=== PATIENT | male | born 1950 | race Two or more races ===

== ENCOUNTER 2016-11-10 12:30 | Inpatient (IN) | payer BC ==
[~2016-11-10] VITALS: Ht 182.9 cm; Wt 88.0 kg
[2016-11-10 12:34] VITALS: BP 165/72; PULSE 58; RESP 15; TEMP 98.2; O2SAT 98
--- NOTE | 2016-11-10 13:30 | PD ---
HPI Chief Complaint: Abnormal Results Time Seen by Provider: 13:17 Travel History International Travel<30 days: Yes Contact w/Intl Traveler<30days: Yes Name of Country Traveled to: [place] Traveled to known affect area: Yes History of Present Illness HPI 66yo M with PMH of IgA nephropathy currently waiting on transplant list presents to the ED with c/o worsening sob, worsening bilateral lower extremity edema for 2-3 weeks. Pt just came from [place] last night and had lab works in [place] recently that showed elevated BUN and creatinine. Pt had right AV fistula created last week. Denies any fever, cough, chest pain, vomiting, abdominal pain, focal weakness or numbness. Pt's son is one of our hospitalist Dr. Wooten and he spoke with Dr. Thakkar who advised him to bring him to [place] ED. PFSH Past Medical History Diabetes: Yes (no medications) Patient Takes Glucophage: No Dialysis: Yes Hypertension: Yes Medical other: Yes (IGA NEPHROPATHY) Past Surgical History Other Surgery: Yes (UMBILICAL HERNIA REPAIR) Social History Alcohol Use: No Tobacco Use: No Substance Use: No Allergies-Medications (Allergen,Severity, Reaction): Coded Allergies: No Known Allergies (Unverified , 11/10/16) Reported Meds & Prescriptions Reported Meds & Active Scripts Active Review of Systems Except as stated in HPI: all other systems reviewed are Neg Physical Exam Narrative GENERAL: 66yo M not in distress. SKIN: Warm and dry. HEAD: Atraumatic. Normocephalic. EYES: Pupils equal and round. No scleral icterus. No injection or drainage. ENT: No nasal bleeding or discharge. Mucous membranes pink and moist. NECK: Trachea midline. No JVD. CARDIOVASCULAR: Regular rate and rhythm. No murmur appreciated. RESPIRATORY: No accessory muscle use. Clear to auscultation. Breath sounds equal bilaterally. GASTROINTESTINAL: Abdomen soft, non-tender, nondistended. No rebound tenderness or guarding. MUSCULOSKELETAL: No obvious deformities. No clubbing. No cyanosis. +Bilateral lower extremity edema. NEUROLOGICAL: Awake and alert. No obvious cranial nerve deficits. Motor grossly within normal limits. Normal speech. PSYCHIATRIC: Appropriate mood and affect; insight and judgment normal. Data Data Last Documented VS Vital Signs Date Time Temp Pulse Resp B/P Pulse Ox O2 Delivery O2 Flow Rate FiO2 11/10/16 13:21 63 18 99 Room Air 11/10/16 12:34 98.2 165/72 Orders Complete Blood Count With Diff (11/10/16 13:26) Comprehensive Metabolic Panel (11/10/16 13:26) Electrocardiogram (11/10/16 ) Chest, Single Ap (11/10/16 ) B-Type Natriuretic Peptide (11/10/16 13:26) Troponin I (11/10/16 13:26) Prothrombin Time / Inr (Pt) (11/10/16 14:46) ^ Blood Flow Rate (11/10/16 14:48) ^ Dialysate Flow Rate (11/10/16 14:48) ^ Dialyzer (11/10/16 14:48) ^ Concentrate (11/10/16 14:48) ^ Acid Concentrate (11/10/16 14:48) ^ Length Of Dialysis (11/10/16 14:48) ^ Frequency Of Dialysis (11/10/16 14:48) ^ Dialysis Obtain (11/10/16 14:48) Hepatitis Profile (11/10/16 14:48) ^ Needle Size (11/10/16 14:48) ^ Dialysis Schedule (11/10/16 14:48) Resp Oxygen Wade C Titrat 1-4 L (11/10/16 ) ^ Dialysis Weight (11/10/16 14:48) ^ Obtain As Needed (11/10/16 14:48) Sodium Chlor 0.9% 1000 Ml Inj (Ns 1000 M (11/10/16 14:48) Heparin Inj (Heparin Inj) (11/10/16 15:00) Sodium Chlor 0.9% 1000 Ml Inj (Ns 1000 M (11/10/16 14:48) Sodium Chlor 0.9% 1000 Ml Inj (Ns 1000 M (11/10/16 14:48) Mannitol Inj (Mannitol Inj) (11/10/16 15:00) Albumin 25% Inj (Albumin 25% Inj) (11/10/16 15:00) Sodium Chloride 0.9% Flush (Ns Flush) (11/10/16 15:00) Heparin Inj (Heparin Inj) (11/10/16 15:00) Gentamicin (Dialysis) Inj (Gentamicin (D (11/10/16 15:00) Ondansetron Inj (Zofran Inj) (11/10/16 15:00) Acetaminophen (Tylenol) (11/10/16 15:00) Diphenhydramine (Benadryl) (11/10/16 15:00) Nitroglycerin Sl (Nitrostat Sl) (11/10/16 15:00) Clonidine (Catapres) (11/10/16 15:00) Epoetin Edinson Inj (Epogen Inj) (11/10/16 15:00) Gelatin 12 Mm/7 Mm Top (Gelfoam 12 Mm/7 (11/10/16 15:00) Admit To Inpatient (11/10/16 ) Inpatient Certification (11/10/16 ) Admit Order (Ed Use Only) (11/10/16 14:54) Activity Bed Rest (11/10/16 14:54) Vital Signs (Adult) THEA.Q4H (11/10/16 14:54) Labs Laboratory Tests Test 11/10/16 13:20 White Blood Count 8.2 TH/MM3 Red Blood Count 3.63 MIL/MM3 Hemoglobin 11.6 GM/DL Hematocrit 32.6 % Mean Corpuscular Volume 89.8 FL Mean Corpuscular Hemoglobin 32.0 PG Mean Corpuscular Hemoglobin 35.7 % Concent Red Cell Distribution Width 13.4 % Platelet Count 301 TH/MM3 Mean Platelet Volume 6.2 FL Neutrophils (%) (Auto) 70.5 % Lymphocytes (%) (Auto) 17.0 % Monocytes (%) (Auto) 6.8 % Eosinophils (%) (Auto) 5.0 % Basophils (%) (Auto) 0.7 % Neutrophils # (Auto) 5.8 TH/MM3 Lymphocytes # (Auto) 1.4 TH/MM3 Monocytes # (Auto) 0.6 TH/MM3 Eosinophils # (Auto) 0.4 TH/MM3 Basophils # (Auto) 0.1 TH/MM3 CBC Comment DIFF FINAL Differential Comment Sodium Level 141 MEQ/L Potassium Level 5.0 MEQ/L Chloride Level 106 MEQ/L Carbon Dioxide Level 23.0 MEQ/L Anion Gap 12 MEQ/L Blood Urea Nitrogen 74 MG/DL Creatinine 11.28 MG/DL Estimat Glomerular Filtration 5 ML/MIN Rate Random Glucose 88 MG/DL Calcium Level 8.7 MG/DL Total Bilirubin 0.4 MG/DL Aspartate Amino Transf 8 U/L (AST/SGOT) Alanine Aminotransferase 19 U/L (ALT/SGPT) Alkaline Phosphatase 69 U/L Troponin I LESS THAN 0.02 NG/ML B-Type Natriuretic Peptide 1068 PG/ML Total Protein 7.2 GM/DL Albumin 3.3 GM/DL MDM Medical Decision Making Medical Screen Exam Complete: Yes Emergency Medical Condition: Yes Interpretation(s) EKG: Sinus bradycardia at 54bpm. LAD. TWI V4-V6. No prior to compare. Differential Diagnosis Acute on chronic kidney failure vs. ACS. vs. PNA Narrative Course 66yo M with IgA nephropathy with worsening renal function. Labs reviewed, H/H low at 11.6/32.6. BUN/creatinine elevated at 74/11.28. This is an acute change from a few days ago when creatinine was 9. BNP 1068. Troponin is negative. K is 5.0. Pt is currently not in acute distress. CXR negative. Discussed with product/device technologist Dr. Thakkar who recommended admission and hemodialysis. Pt has an AV fistula on right arm that has not mature yet. Placed interventional consult for Vas-cath placement for hemodialysis. Discussed with Dr. Wolfe who accepted patient to her service. VS stable. Diagnosis Primary Impression: Acute on chronic kidney failure Admitting Information Admitting Physician Requests: Admit Viridiana Hines DO Nov 10, 2016 13:30
[2016-11-10 13:41] LABS: AUTOMATED NEUTROPHIL # 5.8 TH/MM3 (1.8-7.7); BASOPHIL # 0.1 TH/MM3 (0-0.2); BASOPHIL % 0.7 % (0.0-2.0); EOSINOPHIL # 0.4 TH/MM3 (0-0.4); HEMATOCRIT 32.6 % (39.0-51.0); HEMO FLAGS DIFF FINAL; LYMPHOCYTE # 1.4 TH/MM3 (1.0-4.8); MEAN CELL VOLUME 89.8 FL (80.0-100.0); MEAN CORPUSCULAR HGB CONC 35.7 % (32.0-36.0); MONO % 6.8 % (0.0-8.0); NEUT % 70.5 % (16.0-70.0); PLATELET COUNT 301 TH/MM3 (150-450); RED BLOOD COUNT 3.63 MIL/MM3 (4.50-5.90); RED CELL DISTRIBUTION WIDTH 13.4 % (11.6-17.2); WHITE BLOOD COUNT 8.2 TH/MM3 (4.0-11.0)
[2016-11-10 14:03] LABS: ALT (GPT) 19 U/L (12-78); ANION GAP 12 MEQ/L (5-15); AST (GOT) 8 U/L (15-37); BLOOD UREA NITROGEN 74 MG/DL (7-18); CHLORIDE 106 MEQ/L (98-107); GLOMERULAR FILTRATION RATE 5 ML/MIN (>89); SODIUM (NA) 141 MEQ/L (136-145)
[2016-11-10 14:07] LABS: ALKALINE PHOSPHATASE 69 U/L (45-117); TOTAL BILIRUBIN ADULT 0.4 MG/DL (0.2-1.0)
--- NOTE | 2016-11-10 14:12 | RADRPT ---
EXAM DATE/TIME: 11/10/2016 13:39 [facility] COMPARISON: No previous studies available for comparison. INDICATIONS : Shortness of breath. MEDICAL HISTORY : Hypertension. SURGICAL HISTORY : None. ENCOUNTER: Initial ACUITY: 3 days PAIN SCORE: 0/10 LOCATION: Bilateral chest FINDINGS: A single view of the chest demonstrates the lungs to be symmetrically aerated without evidence of mas s, infiltrate or effusion. The cardiomediastinal contours are unremarkable. Osseous structures are intact. CONCLUSION: No acute disease. Lenny Faye MD on November 10, 2016 at 14:11 Board Certified Radiologist. This report was verified electronically.
[2016-11-10] MEDS ORDERED: SODIUM CHLOR 0.9% 1000 ML INJ 1,000 ML IV PRN ×2 (14:48)
[2016-11-10] MEDS ORDERED: ACETAMINOPHEN 325 MG TAB PO PRN (15:00)
[2016-11-10] MEDS ORDERED: SODIUM CHLORIDE 0.9% FLUSH 5 ML FLUSH IVF PRN ×2 (15:00→18:00)
[2016-11-10] MEDS ORDERED: HEPARIN SODIUM - IV 10,000 UNITS/10 ML VIAL IVF PRN ×2 (15:00→18:00)
[2016-11-10] MEDS ORDERED: GELATIN 12 MM/7 MM FOAM TOP PRN (15:00)
[2016-11-10] MEDS ORDERED: cloNIDine HCL 0.1 MG TAB PO PRN (15:00)
[2016-11-10] MEDS ORDERED: MANNITOL 12.5 GM/50 ML VIAL IV PRN (15:00)
[2016-11-10] MEDS ORDERED: NITROGLYCERIN 0.4 MG SL 25 TABS/BTL SL PRN (15:00)
[2016-11-10] MEDS ORDERED: ALBUMIN HUMAN 25% 25 GM/100 ML BAGP IV PRN (15:00)
[2016-11-10 15:15] VITALS: BP 173/78; PULSE 59; RESP 16; O2SAT 99
--- NOTE | 2016-11-10 15:51 | HHI.HP ---
[facility] Service [place] [facility] Primary Care Physician No Primary Care Physician Admission Diagnosis Acute on chronic kidney failure Diagnoses: Chief Complaint: generalized weakness Travel History International Travel<30 Days: Yes Contact w/Intl Traveler <30 Da: Yes Name of Country Traveled to: [place] Traveled to Known Affected Are: Yes History of Present Illness And is a very pleasant 66-year-old male with known history of hypertension, history of chronic kidney insufficiency secondary to IgA nephropathy diagnosed by biopsy. Plan was to eventually get him on hemodialysis. An AV fistula was placed on the right arm November 04 in anticipation of hemodialysis. Patient arrived in yesterday a few days ago from [place] to visit family. He was set up to be evaluated by our transplant team on November 12. For the past 2 weeks now had been having generalized weakness increasing fatigability edema of both lower extremities, Persistence of above signs and symptoms prompted consult to ER where on evaluation had an acute increase of his creatinine to 11.4. Patient states that he still makes urine. Patient denies any fever or chills nausea or vomiting diarrhea. Review of Systems Constitutional: DENIES: Diaphoretic episodes, Fatigue, Fever, Weight gain, Weight loss, Chills, Dizziness, Change in appetite, Night Sweats Endocrine: DENIES: Heat/cold intolerance, Polydipsia, Polyuria, Polyphagia Eyes: DENIES: Blurred vision, Diplopia, Eye inflammation, Eye pain, Vision loss , Photosensitivity, Double Vision Ears, nose, mouth, throat: DENIES: Tinnitus, Hearing loss, Vertigo, Nasal discharge, Oral lesions, Throat pain, Hoarseness, Ear Pain, Running Nose, Epistaxis, Sinus Pain, Toothache, Odynophagia Respiratory: DENIES: Apneas, Cough, Snoring, Wheezing, Hemoptysis, Sputum production, Shortness of breath Cardiovascular: COMPLAINS OF: Lower Extremity Edema, DENIES: Chest pain, Palpitations, Syncope, Dyspnea on Exertion, PND, Orthopnea, Claudication Gastrointestinal: DENIES: Abdominal pain, Black stools, Bloody stools, Constipation, Diarrhea, Nausea, Vomiting, Difficulty Swallowing, Anorexia Genitourinary: DENIES: Sexual dysfunction, Urinary frequency, Urinary incontinence, Urgency, Hematuria, Dysuria, Nocturia, Penile Discharge, Testicular Pain, Testicular Swelling Musculoskeletal: DENIES: Joint pain, Muscle aches, Stiffness, Joint Swelling, Back pain, Neck pain Integumentary: DENIES: Abnormal pigmentation, Nail changes, Pruritus, Rash Hematologic/lymphatic: DENIES: Bruising, Lymphadenopathy Psychiatric: DENIES: Anxiety, Confusion, Mood changes, Depression, Hallucinations, Agitation, Suicidal Ideation, Homicidal Ideation, Delusions Past Family Social History Past Medical History Hypertension Glucose intolerance her his last hemoglobin A1c was 6.5 Past Surgical History Fistula creation Y A24 Umbilical hernia repair Reported Medications Nifedipine 20 mg 3 times a day Carvedilol 12.5 mg in the morning, 25 mg in the evening Allergies: Coded Allergies: No Known Allergies (Unverified , 11/10/16) Family History Father of heart disease, prostate cancer, abrother has history of diabetes and of diabetes complications, history of congestive heart failure, history of renal insufficiency. Moderate history of diabetes mellitus type 2, and liver cirrhosis Social History Previous smoker Very occasional wine Physical Exam Vital Signs Vital Signs Date Time Temp Pulse Resp B/P Pulse Ox O2 Delivery O2 Flow Rate FiO2 11/10/16 15:15 59 16 173/78 99 Room Air 11/10/16 13:21 63 18 99 Room Air 11/10/16 12:34 98.2 58 15 165/72 98 Physical Exam GENERAL: This is a well-nourished, well-developed patient, in no apparent distress. SKIN: No rashes, ecchymoses or lesions. Cool and dry. HEAD: Atraumatic. Normocephalic. No temporal or scalp tenderness. EYES: Pupils equal round and reactive. Extraocular motions intact. No scleral icterus. No injection or drainage. ENT: Nose without bleeding, purulent drainage or septal hematoma. Throat without erythema, tonsillar hypertrophy or exudate. Uvula midline. Airway patent. NECK: Trachea midline. No JVD or lymphadenopathy. Supple, nontender, no meningeal signs. CARDIOVASCULAR: Regular rate and rhythm without murmurs, gallops, or rubs. RESPIRATORY: Clear to auscultation. Breath sounds equal bilaterally. No wheezes , rales, or rhonchi. GASTROINTESTINAL: Abdomen soft, non-tender, nondistended. No hepato-splenomegaly , or palpable masses. No guarding. MUSCULOSKELETAL: +1 lower extremity edema. No calf tenderness. Negative Homans sign bilaterally. Good peripheral pulses. Right upper extremity with AV fistula in place NEUROLOGICAL: Awake and alert. Cranial nerves II through XII intact. Motor and sensory grossly within normal limits. Five out of 5 muscle strength in all muscle groups. Normal speech. Laboratory Laboratory Tests Test 11/10/16 13:20 White Blood Count 8.2 Red Blood Count 3.63 Hemoglobin 11.6 Hematocrit 32.6 Mean Corpuscular Volume 89.8 Mean Corpuscular Hemoglobin 32.0 Mean Corpuscular Hemoglobin 35.7 Concent Red Cell Distribution Width 13.4 Platelet Count 301 Mean Platelet Volume 6.2 Neutrophils (%) (Auto) 70.5 Lymphocytes (%) (Auto) 17.0 Monocytes (%) (Auto) 6.8 Eosinophils (%) (Auto) 5.0 Basophils (%) (Auto) 0.7 Neutrophils # (Auto) 5.8 Lymphocytes # (Auto) 1.4 Monocytes # (Auto) 0.6 Eosinophils # (Auto) 0.4 Basophils # (Auto) 0.1 CBC Comment DIFF FINAL Differential Comment Sodium Level 141 Potassium Level 5.0 Chloride Level 106 Carbon Dioxide Level 23.0 Anion Gap 12 Blood Urea Nitrogen 74 Creatinine 11.28 Estimat Glomerular Filtration 5 Rate Random Glucose 88 Calcium Level 8.7 Total Bilirubin 0.4 Aspartate Amino Transf 8 (AST/SGOT) Alanine Aminotransferase 19 (ALT/SGPT) Alkaline Phosphatase 69 Troponin I LESS THAN 0.02 B-Type Natriuretic Peptide 1068 Total Protein 7.2 Albumin 3.3 Result Diagram: 11/10/16 1320 11/10/16 1320 Imaging Last Impressions Chest X-Ray 11/10/16 0000 Signed Impressions: Service Date/Time: Thursday, November 10, 2016 13:39 - CONCLUSION: No acute disease. Lenny Faye MD Assessment and Plan Assessment and Plan 66-year-old male presenting with increasing generalized weakness, worsening renal in function End-stage renal disease secondary to IgA nephropathy, hypertensive nephropathy plan to initiate this admission Radiology has been consulted for Vas-Cath/Permcath creation. Dr. Thakkar has been consulted for hemodialysis arrangement. History of hypertension Will continue on Coreg 12.5 mg twice a day Start patient on amlodipine 5 mg by mouth daily readings should improve with HD Elevated BNP secondary to end-stage renal disease. Chest x-ray unremarkable. Images reviewed by ca Diabetes type 2 hemoglobin A1c of 6.5 2 months ago. Blood sugar readings improved with worsening renal functions Anemia, mild of chronic renal disease Admit d/w with patient, patient's son- Dr. Wooten and Dr. Thakkar Physician Certification 2 Midnight Certification Type: Admission for Inpatient Services Order for Inpatient Services The services are ordered in accordance with Medicare regulations or non- Medicare payer requirements, as applicable. In the case of services not specified as inpatient-only, they are appropriately provided as inpatient services in accordance with the 2-midnight benchmark. Estimated LOS (days): 3 days is the estimated time the patient will need to remain in the hospital, assuming treatment plan goals are met and no additional complications. Post-Hospital Plan: Not yet determined Santiago Wolfe MD Nov 10, 2016 15:51 Santiago Wolfe MD Nov 10, 2016 15:51
[2016-11-10 16:04] LABS: PROTHROMBIN TIME - PATIENT 11.4 SEC (9.8-11.6)
--- NOTE | 2016-11-10 16:05 | PD.CONS ---
HPI Service Nephrology Consult Requested By Dr. Wolfe Reason for Consult ESRD Primary Care Physician No Primary Care Physician History of Present Illness Patient is a 66 year old male with hypertension, ESRD due to IgA nephropathy had a AVF placed last week right forearm, he is having increasing tiredness, fatigue, edema, appetite is not to good and came in with these complaints to ER , he was uremic and has creatinine of 11.2 it was 9, 2 weeks ago Review of Systems Constitutional: COMPLAINS OF: Fatigue, Weight gain Respiratory: COMPLAINS OF: Shortness of breath Cardiovascular: COMPLAINS OF: Lower Extremity Edema Psychiatric: COMPLAINS OF: Anxiety Past Family Social History Allergies: Coded Allergies: No Known Allergies (Unverified , 11/10/16) Past Medical History ESRD IgA Nephropathy HTN Anemia Edema Past Surgical History AVF Rt forearm kidney biopsy Active Ordered Medications Current Medications Medications (Trade) Dose Ordered Sig/Rebeca Route Start Time Stop Time Status Last Admin (NS 1000 ml Inj) 1,000 ml @ 0 mls/hr Q0M PRN IV 11/10/16 14:48 Heparin Sodium (Porcine) 8000 units 8,000 units UNSCH PRN IVF 11/10/16 15:00 Sodium Chloride 1,000 ml @ 200 mls/hr Q5H PRN IV 11/10/16 14:48 (NS 1000 ml Inj) 1,000 ml @ 0 mls/hr Q0M PRN IV 11/10/16 14:48 (Mannitol Inj) 12.5 gm UNSCH PRN IV 11/10/16 15:00 (Albumin 25% Inj) 25 gm UNSCH PRN IV 11/10/16 15:00 (NS Flush) 5 ml UNSCH PRN IVF 11/10/16 15:00 (Heparin Inj) UNSCH PRN .XX 11/10/16 15:00 (Gentamicin (Dialysis) Inj) 20 mg UNSCH PRN IV 11/10/16 15:00 (Zofran Inj) 4 mg UNSCH PRN IV 11/10/16 15:00 (Tylenol) 650 mg UNSCH PRN PO 11/10/16 15:00 (Benadryl) 25 mg UNSCH PRN PO 11/10/16 15:00 (Nitrostat Sl) 0.4 mg UNSCH PRN SL 11/10/16 15:00 (Catapres) 0.1 mg UNSCH PRN PO 11/10/16 15:00 (Epogen Inj) 2,000 units UNSCH PRN IV 11/10/16 15:00 (Gelfoam 12 Mm/7 Mm Top) 1 foam UNSCH PRN TOP 11/10/16 15:00 (Norvasc) 5 mg DAILY PO 11/10/16 16:00 Family History noncontributory Social History denies smoking/ETOH Physical Exam Vital Signs Vital Signs Date Time Temp Pulse Resp B/P Pulse Ox O2 Delivery O2 Flow Rate FiO2 11/10/16 15:15 59 16 173/78 99 Room Air 11/10/16 13:21 63 18 99 Room Air 11/10/16 12:34 98.2 58 15 165/72 98 Physical Exam GENERAL: Well-nourished, well-developed patient. SKIN: Warm and dry. HEAD: Normocephalic. EYES: No scleral icterus. No injection or drainage. NECK: Supple, trachea midline. No JVD or lymphadenopathy. CARDIOVASCULAR: Regular rate and rhythm without murmurs, gallops, or rubs. RESPIRATORY: Breath sounds equal bilaterally. No accessory muscle use. GASTROINTESTINAL: Abdomen soft, non-tender, nondistended. EXTREMITIES: No cyanosis, 2 plus edema. AVF Rt forearm NEUROLOGICAL: Awake, alert, and oriented x 3. Non-focal. Laboratory Laboratory Tests Test 11/10/16 13:20 White Blood Count 8.2 Red Blood Count 3.63 Hemoglobin 11.6 Hematocrit 32.6 Mean Corpuscular Volume 89.8 Mean Corpuscular Hemoglobin 32.0 Mean Corpuscular Hemoglobin 35.7 Concent Red Cell Distribution Width 13.4 Platelet Count 301 Mean Platelet Volume 6.2 Neutrophils (%) (Auto) 70.5 Lymphocytes (%) (Auto) 17.0 Monocytes (%) (Auto) 6.8 Eosinophils (%) (Auto) 5.0 Basophils (%) (Auto) 0.7 Neutrophils # (Auto) 5.8 Lymphocytes # (Auto) 1.4 Monocytes # (Auto) 0.6 Eosinophils # (Auto) 0.4 Basophils # (Auto) 0.1 CBC Comment DIFF FINAL Differential Comment Sodium Level 141 Potassium Level 5.0 Chloride Level 106 Carbon Dioxide Level 23.0 Anion Gap 12 Blood Urea Nitrogen 74 Creatinine 11.28 Estimat Glomerular Filtration 5 Rate Random Glucose 88 Calcium Level 8.7 Total Bilirubin 0.4 Aspartate Amino Transf 8 (AST/SGOT) Alanine Aminotransferase 19 (ALT/SGPT) Alkaline Phosphatase 69 Troponin I LESS THAN 0.02 B-Type Natriuretic Peptide 1068 Total Protein 7.2 Albumin 3.3 Result Diagram: 11/10/16 1320 11/10/16 1320 Imaging Last Impressions Chest X-Ray 11/10/16 0000 Signed Impressions: Service Date/Time: Thursday, November 10, 2016 13:39 - CONCLUSION: No acute disease. Lenny Faye MD Assessment and Plan Problem List: (1) ESRD (end stage renal disease) Plan: hemodialysis was discussed with patient and son who is a physician in this facility, continue with dialysis support continue to access he will need a PermCath conversion; he is uremic we will do dialysis for few days and then ask for PermCath insertion (2) Edema Plan: continue supportive care (3) Anemia Plan: may initiate Epogen China Thakkar MD Nov 10, 2016 16:04
--- NOTE | 2016-11-10 17:52 | PD.RAD ---
Post Procedure Progress Note Pre Procedure Diagnosis: (1) Acute on chronic kidney failure Post Procedure Diagnosis: (1) Acute on chronic kidney failure Procedure Date: Nov 10, 2016 Supervising Radiologist: Margarito Jin Proceduralist/Assist: Heidi Blackman RT(R), RT Rajesh(R)() Anesthesia: Local Plan of Activity Patient to Unit: Nursing Unit Patient Condition: Good See PACS Report for procedural detail/treatment Central Venous Access Device Procedure 1 Right Internal Jugular Hemodialysis Catheter Non-Tunneled Placement dual lumen Margarito Jin MD Nov 10, 2016 17:52
[2016-11-10] MEDS: amLODIPine BESYLATE 5 MG TAB PO SCH (18:16)
[2016-11-10] MEDS: oxyCODONE/ACETAMINOPHEN 5 MG/325 MG TAB PO PRN (18:36)
[2016-11-10 20:20] VITALS: BP 174/74; PULSE 68; RESP 16; TEMP 97.4; O2SAT 95
[2016-11-11] VITALS: BP 156/74; PULSE 58; RESP 16; TEMP 98; O2SAT 93
[2016-11-11 04:00] VITALS: BP 162/78; PULSE 61; RESP 17; TEMP 97.7; O2SAT 95
[2016-11-11] MEDS: oxyCODONE/ACETAMINOPHEN 5 MG/325 MG TAB PO PRN ×2 (04:46→10:10)
[2016-11-11] MEDS: amLODIPine BESYLATE 5 MG TAB PO SCH (07:24)
[2016-11-11 08:00] VITALS: BP 156/75; PULSE 60; RESP 17; TEMP 97.3; O2SAT 96
[2016-11-11] MEDS: GENTAMICIN SULFATE (DIALYSIS USE ONLY) 20 MG/2 ML VIAL IV PRN (08:12)
[2016-11-11] MEDS: SODIUM CHLOR 0.9% 1000 ML INJ 1,000 ML IV PRN (08:12)
[2016-11-11] MEDS: EPOETIN ALFA 10,000 UNITS/ML VIAL IV PRN (08:12)
[2016-11-11] MEDS: HEPARIN SODIUM - IV 10,000 UNITS/10 ML VIAL PRN (08:13)
--- NOTE | 2016-11-11 08:35 | HHI.PR ---
Subjective Remarks tolerating hemodialysis Objective Vitals Vital Signs Date Time Temp Pulse Resp B/P Pulse Ox O2 Delivery O2 Flow Rate FiO2 11/11/16 04:00 97.7 61 17 162/78 95 11/11/16 00:00 98.0 58 16 156/74 93 11/10/16 20:20 97.4 68 16 174/74 95 11/10/16 15:15 59 16 173/78 99 Room Air 11/10/16 13:21 63 18 99 Room Air 11/10/16 12:34 98.2 58 15 165/72 98 I/O 11/10/16 11/10/16 11/10/16 11/11/16 11/11/16 11/11/16 07:00 15:00 23:00 07:00 15:00 23:00 Intake Total 240 ml 240 ml Balance 240 ml 240 ml Intake Oral 240 ml 240 ml # Voids 1 1 # Bowel Movements 0 0 Result Diagram: 11/10/16 1320 11/10/16 1320 A/P Assessment and Plan 66-year-old male presenting with increasing generalized weakness, worsening renal in function End-stage renal disease secondary to IgA nephropathy, hypertensive nephropathy plan to initiate this admission Radiology has been consulted for Vas-Cath/Permcath creation. Dr. Thakkar has been consulted for hemodialysis arrangement. History of hypertension Will continue on Coreg 12.5 mg twice a day Start patient on amlodipine 5 mg by mouth daily readings should improve with HD Elevated BNP secondary to end-stage renal disease. Chest x-ray unremarkable. Images reviewed by pr Diabetes type 2 hemoglobin A1c of 6.5 2 months ago. Blood sugar readings improved with worsening renal functions Anemia, mild of chronic renal disease Admit d/w with patient, patient's son- Dr. Wooten and Santiago Bhardwaj MD Nov 11, 2016 08:35
--- NOTE | 2016-11-11 09:47 | HHI.NPPN ---
Subjective History of Present Illness ESRD with uremia Review of Systems General Constitutional: Fatigue Objective Data Data 11/10/16 11/11/16 19:00 07:00 Intake Total 480 ml Balance 480 ml Intake Oral 480 ml # Voids 2 # Bowel Movements 0 Vital Signs Date Time Temp Pulse Resp B/P Pulse Ox O2 Delivery O2 Flow Rate FiO2 11/11/16 08:00 97.3 60 17 156/75 96 11/11/16 04:00 97.7 61 17 162/78 95 11/11/16 00:00 98.0 58 16 156/74 93 11/10/16 20:20 97.4 68 16 174/74 95 11/10/16 15:15 59 16 173/78 99 Room Air 11/10/16 13:21 63 18 99 Room Air 11/10/16 12:34 98.2 58 15 165/72 98 -: 11/10/16 1320 11/10/16 1320 Physical Exam General Appearance: Well Developed, Well Nourished Neck Neck Exam: Neck Supple Pulmonary Resp Exam: Clear Bilaterally, Breath Sounds Equal Cardiology CV Exam: Regular, Normal Sinus Rhythm Gastrointestinal/Abdomen GI Exam: Soft, Non-Tender, Bowel Sounds Present Extremeties Extremities Exam: Moderate Edema Neurologic Neuro Exam: Alert, Awake Assessment/Plan Problem List: (1) ESRD (end stage renal disease) Plan: hemodialysis proceedings noted tolerating it well UF 2 L Vascath some oozing around catheter as uremic coagulopathy ineffective platelets, may wait post dialysis to see if this improves. (2) Edema Plan: continue supportive care (3) Anemia Plan: may initiate Epogen China Thakkar MD Nov 11, 2016 09:46
[2016-11-11 12:00] VITALS: BP 188/76; PULSE 64; RESP 16; TEMP 98.3; O2SAT 96
--- NOTE | 2016-11-11 12:00 | RADRPT ---
EXAM DATE/TIME: 11/10/2016 17:33 [facility] COMPARISON: No previous studies available for comparison. INDICATIONS : Patient with acute kidney failure in need of dialysis catheter placement. MEDICAL HISTORY : Diabetes, HTN, Dialysis, IGA neuropathy, Bilateral lower extremity edema, SOB SURGICAL HISTORY : Umbilical hernia repair, Right AV fistula ENCOUNTER: Initial ACUITY: 2 weeks PAIN SCORE: 0/10 FLUORO TIME: 0.1 minutes ACCESS: Right internal jugular vein DEVICE(S): 1.) 14 Frisian dual lumen 15 cm Vas Cath PROCEDURE : 1. Ultrasound guided venipuncture. 2. Fluoroscopic guidance. 3. Central line placement. The risks, benefits and alternatives to the procedure were explained and verbal and written consent w as obtained. The site was prepped in sterile fashion. Full sterile technique was used, including ca p, mask, sterile gloves and gown and a large sterile sheet. Hand hygiene and 2% chlorhexidine prep w as utilized per protocol for cutaneous antisepsis with appropriate dry time for site. The skin and subcutaneous tissues were infiltrated with local anesthetic solution. A suitable site a edward the vein was selected with ultrasound and fluoroscopic guidance. A small incision was made. Th e vein was accessed under direct ultrasound visualization using the micropuncture technique. The joel ropuncture set was exchanged for a 0.035 wire. The tract was dilated. The catheter was advanced int o position under direct fluoroscopic visualization. The catheter was fixed in place with suture and a sterile dressing was applied. The patient tolerated the procedure well and there were no complications. CONCLUSION: Uncomplicated line placement as above. Margarito Jin MD on November 11, 2016 at 11:58 Board Certified Radiologist. This report was verified electronically.
[2016-11-11] MEDS: ONDANSETRON HCL 4 MG/2 ML VIAL IV PRN ×2 (13:06→20:04)
[2016-11-11] MEDS ORDERED: CLOB5AER TOPICAL (13:20)
[2016-11-11] MEDS ORDERED: CARV25TA PO (13:20)
[2016-11-11] MEDS ORDERED: CARV12.52 PO (13:20)
[2016-11-11] MEDS ORDERED: CLOB-23 TOPICAL (13:20)
[2016-11-11] MEDS ORDERED: NIFE20 PO (13:20)
--- NOTE | 2016-11-11 13:35 | EKG ---
Date Performed: 11/10/2016 Time Performed: 13:38:35 PTAGE: 66 years EKG: SINUS BRADYCARDIA MARKED LEFT AXIS DEVIATION ST DEVIATION AND MODERATE T-WAVE ABNORMALITY, CONSIDER LATERAL ISCHEMIA ABNORMAL ECG NO PREVIOUS TRACING DOCTOR: Karen Berg Interpretating Date/Time 11/11/2016 13:30:46
[2016-11-11 16:00] VITALS: BP 130/94; PULSE 82; RESP 16; TEMP 98.7; O2SAT 98
[2016-11-11 19:00] VITALS: BP 159/79; PULSE 64; RESP 16; TEMP 98; O2SAT 96
[2016-11-12] VITALS (8 sets, daily range): BP systolic 107–178; BP diastolic 56–78; PULSE 59–67; RESP 16–20; TEMP 97–98.6; O2SAT 93–98
[2016-11-12 07:37] LABS: AUTOMATED NEUTROPHIL # 5.3 TH/MM3 (1.8-7.7); BASOPHIL # 0.1 TH/MM3 (0-0.2); BASOPHIL % 0.8 % (0.0-2.0); EOSINOPHIL # 0.3 TH/MM3 (0-0.4); EOSINOPHIL % 3.6 % (0.0-4.0); HEMO FLAGS DIFF FINAL; LYMPH % 22.8 % (9.0-44.0); LYMPHOCYTE # 1.9 TH/MM3 (1.0-4.8); MEAN CELL VOLUME 89.4 FL (80.0-100.0); MEAN CORPUSCULAR HEMOGLOBIN 31.3 PG (27.0-34.0); MONO % 10.5 % (0.0-8.0); NEUT % 62.3 % (16.0-70.0); PLATELET COUNT 294 TH/MM3 (150-450); RED BLOOD COUNT 3.25 MIL/MM3 (4.50-5.90); RED CELL DISTRIBUTION WIDTH 13.6 % (11.6-17.2); WHITE BLOOD COUNT 8.5 TH/MM3 (4.0-11.0)
[2016-11-12 07:58] LABS: BICARBONATE 27.6 MEQ/L (21.0-32.0); POTASSIUM 4.7 MEQ/L (3.5-5.1)
[2016-11-12] MEDS: amLODIPine BESYLATE 5 MG TAB PO SCH ×3 (09:38→21:38)
--- NOTE | 2016-11-12 09:41 | HHI.PR ---
Subjective Remarks feels well overnight, no chest pains, shortness of breath, nausea or vomiting no pain complaints feels tired but states stronger VAS cath area- no oozing Objective Vitals Vital Signs Date Time Temp Pulse Resp B/P Pulse Ox O2 Delivery O2 Flow Rate FiO2 11/12/16 08:22 94 11/12/16 08:00 98.5 59 18 126/68 95 11/12/16 04:00 98.1 62 16 155/74 94 11/12/16 00:10 98.6 63 17 153/76 97 11/11/16 19:00 98.0 64 16 159/79 96 11/11/16 16:00 98.7 82 16 130/94 98 11/11/16 12:00 98.3 64 16 188/76 96 I/O 11/11/16 11/11/16 11/11/16 11/12/16 11/12/16 11/12/16 07:00 15:00 23:00 07:00 15:00 23:00 Intake Total 240 ml 320 ml 480 ml 480 ml Output Total 2000 ml Balance 240 ml -1680 ml 480 ml 480 ml Intake Oral 240 ml 320 ml 480 ml 480 ml Output Hemodialysis 2000 ml # Voids 1 2 2 2 # Bowel Movements 0 0 0 0 Result Diagram: 11/12/16 0655 11/12/16 0655 Imaging Last Impressions Catheter Placement X-Ray 11/10/16 1512 Signed Impressions: Service Date/Time: Thursday, November 10, 2016 17:33 - CONCLUSION: Uncomplicated line placement as above. Margarito Jin MD Chest X-Ray 11/10/16 0000 Signed Impressions: Service Date/Time: Thursday, November 10, 2016 13:39 - CONCLUSION: No acute disease. 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 Thakkar eventual plan for transplant- History of hypertension Will continue on Coreg 12.5 mg twice a day Amlodipine 5 mg by mouth daily readings should improve with HD cardiology consult- will need cardiology clearance- plan for transplant. get Echo Elevated BNP secondary to end-stage renal disease. Chest x-ray unremarkable. Diabetes type 2 hemoglobin A1c of 6.5 2 months ago. Blood sugar readings improved with worsening renal functions Anemia, mild of chronic renal disease Started on Epogen PT consult for deconditioning Nutrition consult Santiago Wolfe MD Nov 12, 2016 09:41
[2016-11-12] MEDS: GENTAMICIN SULFATE (DIALYSIS USE ONLY) 20 MG/2 ML VIAL IV PRN (14:23)
[2016-11-12] MEDS: HEPARIN SODIUM - IV 10,000 UNITS/10 ML VIAL PRN (14:23)
--- NOTE | 2016-11-12 14:27 | HHI.NPPN ---
Subjective History of Present Illness ESRD with uremia Review of Systems General Constitutional: Fatigue Objective Data Data 11/11/16 11/12/16 19:00 07:00 Intake Total 320 ml 960 ml Output Total 2000 ml Balance -1680 ml 960 ml Intake Oral 320 ml 960 ml Output Hemodialysis 2000 ml # Voids 2 4 # Bowel Movements 0 0 Vital Signs Date Time Temp Pulse Resp B/P Pulse Ox O2 Delivery O2 Flow Rate FiO2 11/12/16 11:50 98.0 60 18 178/77 93 11/12/16 08:22 94 11/12/16 08:00 98.5 59 18 126/68 95 11/12/16 04:00 98.1 62 16 155/74 94 11/12/16 00:10 98.6 63 17 153/76 97 11/11/16 19:00 98.0 64 16 159/79 96 11/11/16 16:00 98.7 82 16 130/94 98 -: 11/12/16 0655 11/12/16 0655 Physical Exam General Appearance: Well Developed, Well Nourished Neck Neck Exam: Neck Supple Pulmonary Resp Exam: Clear Bilaterally, Breath Sounds Equal Cardiology CV Exam: Regular, Normal Sinus Rhythm Gastrointestinal/Abdomen GI Exam: Soft, Non-Tender, Bowel Sounds Present Extremeties Extremities Exam: Moderate Edema Neurologic Neuro Exam: Alert, Awake Assessment/Plan Problem List: (1) ESRD (end stage renal disease) Plan: hemodialysis proceedings noted tolerating it well UF 2 L Vascath need to be changed to PermCath by tomorrow called YANIRA Poe for placement case management to forward paper work (2) Edema Plan: continue supportive care (3) Anemia Plan: Epogen (4) Hypertension Plan: increase Amlodipine 5 mg bid China Thakkar MD Nov 12, 2016 14:27
[2016-11-12] MEDS ORDERED: VANCOMYCIN INJ 1,000 MG in SODIUM CHLOR 0.9% 250 ML INJ 250 ML IV SCH (15:30)
[2016-11-12] MEDS ORDERED: ceFAZolin 2 GM PREMIX 50 ML IV SCH (15:30)
[2016-11-12 19:27] LABS: AUTOMATED NEUTROPHIL # 5.3 TH/MM3 (1.8-7.7); BASOPHIL # 0.1 TH/MM3 (0-0.2); BASOPHIL % 0.7 % (0.0-2.0); EOSINOPHIL # 0.3 TH/MM3 (0-0.4); EOSINOPHIL % 4.1 % (0.0-4.0); HEMATOCRIT 32.2 % (39.0-51.0); HEMO FLAGS DIFF FINAL; LYMPH % 17.4 % (9.0-44.0); LYMPHOCYTE # 1.4 TH/MM3 (1.0-4.8); MEAN CELL VOLUME 89.7 FL (80.0-100.0); MEAN CORPUSCULAR HEMOGLOBIN 31.6 PG (27.0-34.0); MEAN CORPUSCULAR HGB CONC 35.2 % (32.0-36.0); MONO % 10.2 % (0.0-8.0); NEUT % 67.6 % (16.0-70.0); PLATELET COUNT 299 TH/MM3 (150-450); RED BLOOD COUNT 3.59 MIL/MM3 (4.50-5.90); RED CELL DISTRIBUTION WIDTH 13.7 % (11.6-17.2); WHITE BLOOD COUNT 7.8 TH/MM3 (4.0-11.0)
--- NOTE | 2016-11-12 20:13 | MB ---
cc: MEREDITH HOLT DATE OF CONSULTATION: 11/12/2016 HISTORY OF PRESENT ILLNESS Mr. Wooten is a 66-year-old man originally from [place] with a history of hypertension, end-stage renal disease now on hemodialysis secondary to IgA nephropathy. He presented with progressive fatigue, lower extremity edema, poor appetite. He has not had any chest pain or shortness of breath. He was uremic. He underwent placement of a dialysis catheter to the right forearm last week. He now has a dialysis central venous catheter as well. He will be placed on transplant placement. Cardiology evaluation is therefore requested. MEDICAL HISTORY Positive for - 1. End-stage renal disease, now on hemodialysis. 2. IgA nephropathy. 3. Hypertension. 4. Anemia. 5. History of right forearm AV fistula. 6. Kidney biopsy. No history of dyslipidemia, diabetes mellitus, coronary artery disease or CVA. MEDICATIONS Amlodipine 5 mg twice a day. ALLERGIES NONE. SOCIAL HISTORY The patient does not smoke. He drinks alcohol socially frequently. FAMILY HISTORY Positive for angina in his father. REVIEW OF SYSTEMS Otherwise negative. PHYSICAL EXAMINATION VITAL SIGNS: Blood pressure 158/68, pulse 60 and regular. HEAD, EYES, EARS, NOSE, AND THROAT: Negative. NECK: 2+ carotid upstrokes. No bruits. LUNGS: Clear. HEART: Regular with no murmur, gallop or rub. There is a right IJ central venous catheter. ABDOMEN: Soft. No bruits. EXTREMITIES: With 1+ edema. 1+ positive pulses. NEUROLOGIC: Exam is grossly nonfocal. EKG was reviewed was reviewed and showed sinus bradycardia, left axis, nonspecific T wave changes. LABORATORY DATA Hemoglobin 10.2, potassium 4.7, creatinine 9.8, AST/ALT normal, troponin normal, BNP 1068. DIAGNOSES 1. End-stage renal disease on hemodialysis. 2. Uremia. 3. Anemia. 4. Hypertension. 5. IgA nephropathy. DISPOSITION Mr. Wooten will undergo cardiology evaluation prior to transplant consideration. We will obtain echocardiogram and also Adenosine myocardial perfusion study tomorrow. He understands the plan and wishes to proceed. I will follow him for cardiology during his hospitalization. MD JORGE Ramires/TRACY /7:09 PM 7:39 PM RAPHAEL
[2016-11-12] MEDS ORDERED: NIFEdipine 20 MG CAP PO ONE (22:00)
[2016-11-12] MEDS: CARVEDILOL 12.5 MG TAB PO SCH (22:03)
[2016-11-13] VITALS (13 sets, daily range): BP systolic 109–166; BP diastolic 57–73; PULSE 54–70; RESP 16–18; TEMP 96.5–98.6; O2SAT 92–97
[2016-11-13 06:12] LABS: BICARBONATE 30.1 MEQ/L (21.0-32.0); POTASSIUM 4.1 MEQ/L (3.5-5.1)
[2016-11-13] MEDS: NIFEdipine 20 MG CAP PO SCH ×3 (09:20→18:46)
[2016-11-13] MEDS: CARVEDILOL 12.5 MG TAB PO SCH ×2 (09:20→19:37)
[2016-11-13] MEDS ORDERED: LIDOCAINE 1%/EPINEPHrine 1:100,000 SOLN 20 ML VIAL ONE (10:42)
--- NOTE | 2016-11-13 10:48 | HHI.PR ---
Subjective Remarks patient feels great, no nausea or vomiting no pain Objective Vitals Vital Signs Date Time Temp Pulse Resp B/P Pulse Ox O2 Delivery O2 Flow Rate FiO2 11/13/16 08:03 94 21 11/13/16 08:00 96.9 60 18 166/72 97 11/13/16 03:43 98.6 60 16 117/67 92 11/12/16 23:35 97.0 66 16 107/56 95 11/12/16 19:26 98.6 64 16 151/78 96 11/12/16 17:54 21 11/12/16 17:10 98.5 67 20 158/68 98 11/12/16 11:50 98.0 60 18 178/77 93 I/O 11/12/16 11/12/16 11/12/16 11/13/16 11/13/16 11/13/16 06:59 14:59 22:59 06:59 14:59 22:59 Intake Total 480 ml 240 ml 480 ml 240 ml Output Total 2000 ml Balance 480 ml 240 ml -1520 ml 240 ml Intake Oral 480 ml 240 ml 480 ml 240 ml Hemodialysis 2000 ml # Voids 2 2 2 1 # Bowel Movements 0 0 0 0 Result Diagram: 11/12/16 1845 11/13/16 0454 Imaging Last Impressions Catheter Placement X-Ray 11/10/16 1512 Signed Impressions: Service Date/Time: Thursday, November 10, 2016 17:33 - CONCLUSION: Uncomplicated line placement as above. Margarito Jin MD Chest X-Ray 11/10/16 0000 Signed Impressions: Service Date/Time: Thursday, November 10, 2016 13:39 - CONCLUSION: No acute disease. Lenny Faye MD Objective Remarks awake and alert, oriented x 3 Right chest wall- VAS cath in place anicteric lungs no rales or wheezes regular rhythm abdomen soft, nontender extremities RUE- AVF + thrill. LE no edema neuro exam- unremarkable Procedures hemodialysis- A/P Assessment and Plan 66-year-old male presenting with increasing generalized weakness, worsening renal in function End-stage renal disease secondary to IgA nephropathy, hypertensive nephropathy on hemodialysis- Dr. Thakkar. for permcath creation today eventual plan for transplant- Vascular surgery consulted to evaluate AVF History of hypertension Will continue on Coreg 12.5 mg twice a day CCB changed to Nifedipine 20 mg po tid- home regimen readings should improve with HD seen by Dr. Pederson need cardiology clearance- echo, myocardial scan Elevated BNP secondary to end-stage renal disease. Chest x-ray unremarkable. Diabetes type 2 hemoglobin A1c of 6.5 2 months ago. Blood sugar readings improved with worsening renal functions Anemia, mild of chronic renal disease Started on Epogen Elevated PSA- per son- Dr. Wooten Urology consult for evaluation- this needs to be evaluated as patient is on transplant list PT consult for deconditioning Nutrition consult Santiago Wolfe MD Nov 13, 2016 10:48
[2016-11-13] MEDS ORDERED: fentaNYL CITRATE 250 MCG/5 ML AMP ONE (11:44)
[2016-11-13] MEDS ORDERED: MIDAZOLAM HCL 5 MG/5 ML VIAL ONE (11:44)
[2016-11-13] MEDS ORDERED: SODIUM CHLORIDE 0.9% FLUSH 5 ML FLUSH IVF PRN (13:15)
[2016-11-13] MEDS ORDERED: HEPARIN SODIUM - IV 10,000 UNITS/10 ML VIAL IVF PRN (13:15)
--- NOTE | 2016-11-13 13:28 | RADRPT ---
EXAM DATE/TIME: 11/13/2016 11:44 [facility] COMPARISON: No previous studies available for comparison. INDICATIONS : Patient with a history of renal disease, needs dialysis. MEDICAL HISTORY : ESRD Nephropathy HTN Anemia SURGICAL HISTORY : Rt. forearm AV fistula Kidney biopsy Umbilical hernia repair ENCOUNTER: Subsequent ACUITY: 3 days PAIN SCORE: 0/10 FLUORO TIME: 0.6 minutes SEDATION TIME: 30 minutes ACCESS: Right internal jugular vein SEDATION: 1.) 2 mg midazolam (Versed) IV 2.) 100 mcg fentanyl (Sublimaze) IV Prophylactic antibiotics were administered with appropriate pre-procedure timing. Vancomycin within 2 hours of procedure, Ancef (or alternative) within 1 hour of procedure. DEVICE: 1. 15 Cameroonian dual lumen 23 cm Smith II Plus catheter PROCEDURE : 1. Fluoroscopically-guided venipuncture. 2. PermaCath placement. 3. Conscious sedation with continuous EKG and oximetry monitoring. The risks, benefits and alternatives to the procedure were explained and verbal and written consent w as obtained. The site was prepped in sterile fashion. Full sterile technique was used, including ca p, mask, sterile gloves and gown and a large sterile sheet. Hand hygiene and 2% chlorhexidine Betadi ne was utilized per protocol for cutaneous antisepsis with appropriate dry time for site. The skin a nd subcutaneous tissues were infiltrated with local anesthetic solution. Utilizing fluoroscopic guidance a dermatotomy was created over the prescribed vein. A micropuncture set was used to access the targeted vein and serial dilatation was performed to accept the prescribed length Smith catheter. A subcutaneous tunnel was created in a retrograde fashion the Smith cathet er was pulled through the tunnel. The catheter was flushed and assembled and locked with heparin. T he catheter was sutured in place. Conscious sedation was performed with the prescribed dosages and duration as above. The patient tole rated the procedure well and there were no complications. EKG and oximetry remained stable throughou t the procedure. The patient was sent to post anesthesia recovery in stable condition. CONCLUSION: Uncomplicated PermaCath placement as above. Margarito Jin MD on November 13, 2016 at 13:27 Board Certified Radiologist. This report was verified electronically.
--- NOTE | 2016-11-13 14:12 | PD.RAD ---
Post Procedure Progress Note Pre Procedure Diagnosis: (1) Acute on chronic kidney failure Post Procedure Diagnosis: (1) Acute on chronic kidney failure Procedure Date: Nov 13, 2016 Supervising Radiologist: Margarito Jin Proceduralist/Assist: Cristiano Rivas RT(R), Kathi Soliman RT(R)() Anesthesia: Conscious Sedation Plan of Activity Patient to Unit: Nursing Unit Patient Condition: Good See PACS Report for procedural detail/treatment Central Venous Access Device Procedure 1 Right Hemodialysis Catheter Tunneled Placement dual lumen Margarito Jin MD Nov 13, 2016 14:12
[2016-11-13] MEDS ORDERED: REGADENOSON INJ 0.4 MG/5 ML SYR ONE (14:26)
--- NOTE | 2016-11-13 16:12 | RADRPT ---
EXAM DATE/TIME: 11/13/2016 14:15 [facility] COMPARISON: No previous studies available for comparison. INDICATIONS : Cadiac clearance. Preop for surgery. DOSE: 25.2 mCi Tc99m Myoview at stress. 8.1 mCi Tc99m Myoview at rest. 0.4 mg Lexiscan STRESS SYMPTOMS: Dyspnea and chest pressure. EJECTION FRACTION: 43% MEDICAL HISTORY : Renal disease, end stage. Hypertension. SURGICAL HISTORY : Inguinal hernia repair. ENCOUNTER: Initial ACUITY: 1 day PAIN SCALE: 1/10 LOCATION: Bilateral chest TECHNIQUE: The patient underwent pharmacologic stress with infusion of prescribed dose. Continuous ECG tracing was monitored during stress. Gated SPECT imaging was performed after stress and conventional SPECT i maging was performed at rest. The examination was performed on a SPECT/CT scanner, both attenuation and non-corrected datasets were reviewed. FINDINGS: DISTRIBUTION: The maximum perfused segment at stress is in the anterior wall. PERFUSION STUDY: The pattern of perfusion at stress is within normal limits. GATED STUDY: There is global hypokinesis with ejection fraction of 43%. No akinetic or dyskinetic segments are isaiah ntified. CONCLUSION: 1. No ischemic segment identified. Mild global hypokinesis. RISK CATEGORY: Intermediate (1-3% Annual Mortality Rate) Margarito Jin MD on November 13, 2016 at 16:09 Board Certified Radiologist. This report was verified electronically.
--- NOTE | 2016-11-13 16:22 | EC ---
Study Study Date:11/13/2016 STUDY CONCLUSIONS SUMMARY - Left ventricle: The cavity size was normal. Systolic function was normal. The estimated ejection fraction was in the range of 60% to 65%. Wall motion was normal; there were no regional wall motion abnormalities. Doppler parameters are consistent with abnormal left ventricular relaxation (grade 1 diastolic dysfunction). - Aortic valve: Mild to moderate regurgitation directed centrally in the LVOT. Valve area: 2.81cm^2(VTI). Valve area: 2.77cm^2 (Vmax). - Pulmonary arteries: PA peak pressure: 35mm Hg (S). If LV function is below 40, please consider prescribing an ACEI or ARB or document rationale for non-use. PROCEDURE DATA STUDY STATUS: Elective. Procedure: Transthoracic echocardiography. Image quality was good. Scanning was performed from the parasternal, apical, and subcostal acoustic windows. Study completion: The patient tolerated the procedure well. Transthoracic echocardiography. M-mode, complete 2D, complete spectral Doppler, and color Doppler. Height: Height: 72in. Weight: Weight: 190.6lb. Body mass index: BMI: 25.9kg/m^2. Body surface area: BSA: 2.09m^2. Patient status: Inpatient. CARDIAC ANATOMY LEFT VENTRICLE: The cavity size was normal. Systolic function was normal. The estimated ejection fraction was in the range of 60% to 65%. Wall motion was normal; there were no regional wall motion abnormalities. Doppler parameters are consistent with abnormal left ventricular relaxation (grade 1 diastolic dysfunction). AORTIC VALVE: The valve appears to be grossly normal. Doppler: There was no stenosis. Mild to moderate regurgitation directed centrally in the LVOT. Valve area: 2.81cm^2(VTI). Indexed valve area: 1.34cm^2/m^2 (VTI). Valve area: 2.77cm^2 (Vmax). Indexed valve area: 1.33cm^2/m^2 (Vmax). Mean gradient: 6mm Hg (S). Peak gradient: 12mm Hg (S). MITRAL VALVE: The valve appears to be grossly normal. Doppler: There was no evidence for stenosis. No significant regurgitation. LEFT ATRIUM: The atrium was normal in size. RIGHT VENTRICLE: The cavity size was normal. Systolic function was normal. PULMONIC VALVE: The valve appears to be grossly normal. Doppler: There was no evidence for stenosis. No significant regurgitation. TRICUSPID VALVE: The valve appears to be grossly normal. Doppler: There was no evidence for stenosis. Trace regurgitation. PERICARDIUM: There was no pericardial effusion. Patient weight: 190.6lb _Ejection fraction:_ 65-75% _Fractional shortening:_ 32% up to 5Kg 5-11.5Kg 11.6-22.9Kg 23-45Kg 45-57Kg Aortic Root 7-13 <17 13-22 17-27 17-27 LA diam 6-13 <23 24-38 33-47 37-40 RVID 10-17 7-15 7-15 7-18 8-17 LVIDd 12-22 <32 24-38 33-47 37-40 LVPW 2-4 3-6 5-7 6-8 7-8 IVS 2-4 3-6 5-7 6-8 7-8 BASIC MEASUREMENTS ADULT NORMAL Left ventricle LV internal dimension, ED, chordal *63.4 mm 43-52 level, PLAX LV internal dimension, ES, chordal *39.6 mm 23-38 level, PLAX Fractional shortening, chordal level, 38 % >29 PLAX LV posterior wall thickness, ED 10.8 mm IVS/LVPW ratio, ED 0.99 <1.3 Ventricular septum Septal thickness, ED 10.7 mm Aortic valve Leaflet separation 22 mm 15-26 Aorta Root diameter, ED 43 mm Left atrium Anterior-posterior dimension 32 mm Anterior-posterior dimension index 1.53 cm/m^2 <2.2 BASIC MEASUREMENTS ADULT NORMAL Aortic valve Leaflet separation 22 mm 15-26 DOPPLER MEASUREMENTS ADULT NORMAL Main pulmonary artery Pressure, S *35 mm Hg =30 Aortic valve Peak velocity, S 170 cm/s Mean velocity, S 115 cm/s VTI, S 35.4 cm Mean gradient, S 6 mm Hg Peak gradient, S 12 mm Hg Valve area, VTI 2.81 cm^2 Valve area index, VTI 1.34 cm^2/m^2 Valve area, Vmax 2.77 cm^2 Valve area index, Vmax 1.33 cm^2/m^2 Regurgitant velocity, ED 466 cm/s Regurgitant deceleration 2620 cm/s^2 Regurgitant pressure half-time 521 ms Regurgitant gradient, ED 87 mm Hg Mitral valve Peak E-wave velocity 47.4 cm/s Peak A-wave velocity 90.3 cm/s Peak E/A ratio 0.5 Tricuspid valve Regurgitant peak velocity 285 cm/s Peak RV-RA gradient, S 32 mm Hg Maximal regurgitant velocity 285 cm/s Systemic veins Estimated CVP 5 mm Hg Right ventricle RV pressure, S *37 mm Hg <30 Pulmonic valve Peak velocity, S 75.2 cm/s LEGEND: Mean values are shown as u=mean value. Asterisk (*) cardoso values outside specified normal range. Prepared and signed by Dung Jacobsen [id number]
--- NOTE | 2016-11-13 19:08 | HHI.NPPN ---
Subjective History of Present Illness ESRD doing better s/p PermCath AVF Rt forearm Objective Data Data 11/12/16 11/13/16 19:00 07:00 Intake Total 240 ml 720 ml Output Total 2000 ml Balance -1760 ml 720 ml Intake Oral 240 ml 720 ml Hemodialysis 2000 ml # Voids 2 3 # Bowel Movements 0 0 Vital Signs Date Time Temp Pulse Resp B/P Pulse Ox O2 Delivery O2 Flow Rate FiO2 11/13/16 17:45 62 16 142/66 96 11/13/16 17:00 142/66 96 11/13/16 13:45 70 16 123/71 92 11/13/16 13:25 54 16 134/68 94 11/13/16 12:55 57 16 129/70 94 11/13/16 12:40 98.0 62 16 135/73 96 11/13/16 10:49 98.1 67 18 109/57 94 11/13/16 08:03 94 21 11/13/16 08:00 96.9 60 18 166/72 97 11/13/16 03:43 98.6 60 16 117/67 92 11/12/16 23:35 97.0 66 16 107/56 95 11/12/16 19:26 98.6 64 16 151/78 96 -: 11/12/16 1845 11/13/16 0454 Physical Exam General Appearance: Well Developed, Well Nourished Neck Neck Exam: Neck Supple Pulmonary Resp Exam: Clear Bilaterally, Breath Sounds Equal Cardiology CV Exam: Regular, Normal Sinus Rhythm Gastrointestinal/Abdomen GI Exam: Soft, Non-Tender, Bowel Sounds Present Extremeties Extremities Exam: Moderate Edema Neurologic Neuro Exam: Alert, Awake Assessment/Plan Problem List: (1) ESRD (end stage renal disease) Plan: hemodialysis next tomorrow PermCath placed [facility] set up next HD in am possible dc plans per Primary team (2) Edema Plan: continue supportive care (3) Anemia Plan: Epogen (4) Hypertension Plan: increase Amlodipine 5 mg bid China Thakkar MD Nov 13, 2016 19:08
[2016-11-13] MEDS: oxyCODONE/ACETAMINOPHEN 5 MG/325 MG TAB PO PRN (19:36)
[2016-11-14 04:25] VITALS: BP 141/67; PULSE 62; RESP 16; TEMP 96.6; O2SAT 96
[2016-11-14 08:00] VITALS: BP 160/74; PULSE 62; RESP 18; TEMP 97.7; O2SAT 96
[2016-11-14] MEDS: NIFEdipine 20 MG CAP PO SCH ×3 (09:39→17:08)
[2016-11-14] MEDS: CARVEDILOL 12.5 MG TAB PO SCH ×2 (09:39→20:56)
--- NOTE | 2016-11-14 11:16 | HHI.PR ---
Subjective Remarks no chest pain or shortness of breath patient states generalized aches- no specific abdominal pain or leg pain moves all extremities spontaenosuly Objective Vitals Vital Signs Date Time Temp Pulse Resp B/P Pulse Ox O2 Delivery O2 Flow Rate FiO2 11/14/16 08:00 97.7 62 18 160/74 96 11/14/16 04:25 96.6 62 16 141/67 96 11/13/16 23:20 97.1 70 16 128/61 96 11/13/16 20:30 96.5 70 16 116/60 94 11/13/16 18:45 96.5 70 16 116/60 94 11/13/16 17:45 62 16 142/66 96 11/13/16 17:00 142/66 96 11/13/16 13:45 70 16 123/71 92 11/13/16 13:25 54 16 134/68 94 11/13/16 12:55 57 16 129/70 94 11/13/16 12:40 98.0 62 16 135/73 96 I/O 11/13/16 11/13/16 11/13/16 11/14/16 11/14/16 11/14/16 07:00 15:00 23:00 07:00 15:00 23:00 Intake Total 240 ml 600 ml 240 ml Output Total 0 ml Balance 240 ml 600 ml 240 ml Intake Oral 240 ml 600 ml 240 ml Output Urine Total 0 ml # Voids 1 3 # Bowel Movements 0 0 0 Result Diagram: 11/12/16 1845 11/13/16 0454 Imaging Last Impressions Myocardial Perfusion Scan Nuc Med 11/13/16 0000 Signed Impressions: Service Date/Time: November 14:15 - CONCLUSION: 1. No ischemic segment identified. Mild global hypokinesis. RISK CATEGORY: Intermediate (1-3%% Annual Mortality Rate) Margarito Jin MD Catheter Placement X-Ray 11/13/16 0000 Signed Impressions: Service Date/Time: November 11:44 - CONCLUSION: Uncomplicated PermaCath placement as above. Margarito Jin MD Chest X-Ray 11/10/16 0000 Signed Impressions: Service Date/Time: Thursday, November 10, 2016 13:39 - CONCLUSION: No acute disease. Lenny Faye MD Objective Remarks awake and alert, oriented x 3 Right chest wall- VAS cath in place anicteric lungs no rales or wheezes regular rhythm abdomen soft, nontender no muscle tenderness RUE- AV fistula + thrill extremities no edema neuro exam- unremarkable Procedures hemodialysis- A/P Assessment and Plan 66-year-old male presenting with increasing generalized weakness, worsening renal in function End-stage renal disease secondary to IgA nephropathy, hypertensive nephropathy on hemodialysis- Dr. Thakkar. ff eventual plan for transplant- on list Vascular surgery consulted to evaluate AVF History of hypertension Will continue on Coreg 12.5 mg twice a day CCB changed to Nifedipine 20 mg po tid- home regimen readings should improve with HD seen by Dr. Pederson - cleared Elevated BNP secondary to end-stage renal disease. Chest x-ray unremarkable. Diabetes type 2 hemoglobin A1c of 6.5 2 months ago. Blood sugar readings improved with worsening renal functions Anemia, mild of chronic renal disease on Epogen Elevated PSA- per son- Dr. Wooten- he will bring results Urology consult for evaluation- this needs to be evaluated as patient is on transplant list PT ff for deconditioning Nutrition consult Santiago Wolfe MD Nov 14, 2016 11:16
[2016-11-14 12:00] VITALS: BP 126/67; PULSE 66; RESP 18; TEMP 98.4; O2SAT 95
--- NOTE | 2016-11-14 13:05 | PD.CONS ---
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 Patient is on the transplant list and I was consulted to evaluate for the possibility of prostate cancer. Patient denies a history of dysuria or hematuria. He did have a serum PSA level checked in October of this year with a reading of 2.3. This study was performed at an outside lab and the patient showed me the lab result. Review of Systems ROS Limitations: Language Barrier Past Family Social History Past Medical History Hypertension Glucose intolerance Past Surgical History Placement of AV fistula Umbilical herniorrhaphy Reported Medications Refer to EMR Allergies: Coded Allergies: No Known Allergies (Unverified , 11/10/16) Active Ordered Medications Refer to EMR Family History Father with history of prostate cancer Social History Occasional alcohol use Former smoker Physical Exam Vital Signs Vital Signs Date Time Temp Pulse Resp B/P Pulse Ox O2 Delivery O2 Flow Rate FiO2 11/14/16 12:00 98.4 66 18 126/67 95 11/14/16 08:00 97.7 62 18 160/74 96 11/14/16 04:25 96.6 62 16 141/67 96 11/13/16 23:20 97.1 70 16 128/61 96 11/13/16 20:30 96.5 70 16 116/60 94 11/13/16 18:45 96.5 70 16 116/60 94 11/13/16 17:45 62 16 142/66 96 11/13/16 17:00 142/66 96 11/13/16 13:45 70 16 123/71 92 11/13/16 13:25 54 16 134/68 94 Physical Exam GENERAL: This is a well-nourished, well-developed patient, in no apparent distress. SKIN: No rashes, ecchymoses or lesions. Cool and dry. HEAD: Atraumatic. Normocephalic. No temporal or scalp tenderness. EYES: Pupils equal round and reactive. Extraocular motions intact. No scleral icterus. No injection or drainage. ENT: Nose without bleeding, purulent drainage or septal hematoma. Throat without erythema, tonsillar hypertrophy or exudate. Uvula midline. Airway patent. NECK: Trachea midline. No JVD or lymphadenopathy. Supple, nontender, no meningeal signs.. GASTROINTESTINAL: Abdomen soft, non-tender, nondistended. No hepato-splenomegaly , or palpable masses. No guarding. : Prostate approximately 30 g, smooth, no nodules MUSCULOSKELETAL: Extremities without clubbing, cyanosis, or edema. No joint tenderness, effusion, or edema noted. No calf tenderness. Negative Homans sign bilaterally. AV fistula right upper extremity. NEUROLOGICAL: Awake and alert. Cranial nerves II through XII intact. Motor and sensory grossly within normal limits. Five out of 5 muscle strength in all muscle groups. Normal speech. Result Diagram: 11/12/16 1845 11/13/16 0454 Assessment and Plan Assessment and Plan Urologic impression: No clinical evidence of prostate cancer. No neurologic contraindication to proceed with renal transplant. Recommendations: No further recommendations at this time. Polo Hoover MD Nov 14, 2016 13:05
[2016-11-14 16:00] VITALS: BP 144/69; PULSE 61; RESP 18; TEMP 98.1; O2SAT 99
[2016-11-14] MEDS: HEPARIN SODIUM - IV 10,000 UNITS/10 ML VIAL PRN (16:56)
[2016-11-14] MEDS: SODIUM CHLOR 0.9% 1000 ML INJ 1,000 ML IV PRN (16:56)
[2016-11-14] MEDS: GENTAMICIN SULFATE (DIALYSIS USE ONLY) 20 MG/2 ML VIAL IV PRN (16:56)
[2016-11-14] MEDS: EPOETIN ALFA 10,000 UNITS/ML VIAL IV PRN (16:57)
--- NOTE | 2016-11-14 17:11 | HHI.NPPN ---
Subjective History of Present Illness ESRD doing better s/p PermCath AVF Rt forearm Objective Data Data 11/13/16 11/14/16 19:00 07:00 Intake Total 360 ml 480 ml Output Total 0 ml Balance 360 ml 480 ml Intake Oral 360 ml 480 ml Output Urine Total 0 ml # Voids 2 1 # Bowel Movements 0 0 Vital Signs Date Time Temp Pulse Resp B/P Pulse Ox O2 Delivery O2 Flow Rate FiO2 11/14/16 12:00 98.4 66 18 126/67 95 11/14/16 08:00 97.7 62 18 160/74 96 11/14/16 04:25 96.6 62 16 141/67 96 11/13/16 23:20 97.1 70 16 128/61 96 11/13/16 20:30 96.5 70 16 116/60 94 11/13/16 18:45 96.5 70 16 116/60 94 11/13/16 17:45 62 16 142/66 96 -: 11/12/16 1845 11/13/16 0454 Physical Exam General Appearance: Well Developed, Well Nourished Neck Neck Exam: Neck Supple Pulmonary Resp Exam: Clear Bilaterally, Breath Sounds Equal Cardiology CV Exam: Regular, Normal Sinus Rhythm Gastrointestinal/Abdomen GI Exam: Soft, Non-Tender, Bowel Sounds Present Extremeties Extremities Exam: Moderate Edema Neurologic Neuro Exam: Alert, Awake Assessment/Plan Problem List: (1) ESRD (end stage renal disease) Plan: hemodialysis next tomorrow PermCath placed [facility] set up seen during dialysis 2L off (2) Edema Plan: continue supportive care (3) Anemia Plan: Epogen (4) Hypertension Plan: increase Amlodipine 5 mg bid China Thakkar MD Nov 14, 2016 17:11
[2016-11-14 20:00] VITALS: BP 139/73; PULSE 82; RESP 18; TEMP 96.7; O2SAT 97
[2016-11-14] MEDS: diphenhydrAMINE HCL 25 MG CAP PO PRN (20:56)
[2016-11-15 00:25] VITALS: BP 136/68; PULSE 65; RESP 18; TEMP 98.1; O2SAT 92
[2016-11-15 07:52] VITALS: BP 147/70; PULSE 63; RESP 16; TEMP 97.1; O2SAT 96
--- NOTE | 2016-11-15 09:25 | HHI.PR ---
Subjective Remarks no chest pain or shortness of breath ambulating around his room Objective Vitals Vital Signs Date Time Temp Pulse Resp B/P Pulse Ox O2 Delivery O2 Flow Rate FiO2 11/15/16 00:25 98.1 65 18 136/68 92 11/14/16 20:00 96.7 82 18 139/73 97 11/14/16 16:00 98.1 61 18 144/69 99 11/14/16 12:00 98.4 66 18 126/67 95 I/O 11/14/16 11/14/16 11/14/16 11/15/16 11/15/16 11/15/16 07:00 15:00 23:00 07:00 15:00 23:00 Intake Total 240 ml 1370 ml 800 ml Output Total 0 ml 2000 ml Balance 240 ml -630 ml 800 ml Intake Oral 240 ml 1370 ml 800 ml Output Urine Total 0 ml Hemodialysis 2000 ml # Voids 4 3 # Bowel Movements 0 1 0 Result Diagram: 11/12/16 1845 11/13/16 0454 Imaging Last Impressions Myocardial Perfusion Scan Nuc Med 11/13/16 0000 Signed Impressions: Service Date/Time: November 14:15 - CONCLUSION: 1. No ischemic segment identified. Mild global hypokinesis. RISK CATEGORY: Intermediate (1-3%% Annual Mortality Rate) Margarito Jin MD Catheter Placement X-Ray 11/13/16 0000 Signed Impressions: Service Date/Time: November 11:44 - CONCLUSION: Uncomplicated PermaCath placement as above. Margarito Jin MD Chest X-Ray 11/10/16 0000 Signed Impressions: Service Date/Time: Thursday, November 10, 2016 13:39 - CONCLUSION: No acute disease. Lenny Faye MD Objective Remarks awake and alert, oriented x 3 Right chest wall- VAS cath in place anicteric lungs no rales or wheezes regular rhythm abdomen soft, nontender no muscle tenderness extremities no edema, RUE- AVF + thrill neuro exam- unremarkable Procedures hemodialysis- A/P Assessment and Plan 66-year-old male presenting with increasing generalized weakness, worsening renal in function End-stage renal disease secondary to IgA nephropathy, hypertensive nephropathy on hemodialysis- Dr. Thakkar. ff eventual plan for transplant- on list Vascular surgery consulted to evaluate AVF History of hypertension- better readings Will continue on Coreg 12.5 mg am, 25 mg hs CCB changed to Nifedipine 20 mg po tid- home regimen readings should improve with HD seen by Dr. Dacia Rivera negative Elevated BNP secondary to end-stage renal disease. Chest x-ray unremarkable. edema resolved Diabetes type 2 hemoglobin A1c of 6.5 2 months ago. Blood sugar readings improved with worsening renal functions Anemia, mild of chronic renal disease on Epogen Elevated PSA history- no evidence of clinical prostate cancer S/P evaluation by Urology PT ff for deconditioning DC planning- once OP HD arranged Santiago Wolfe MD Nov 15, 2016 09:25
[2016-11-15] MEDS: NIFEdipine 20 MG CAP PO SCH ×3 (09:40→18:35)
[2016-11-15] MEDS: CARVEDILOL 12.5 MG TAB PO SCH ×2 (09:41→21:36)
[2016-11-15 11:33] VITALS: BP 109/57; PULSE 67; RESP 16; TEMP 96.9; O2SAT 93
[2016-11-15 16:00] VITALS: BP 127/67; PULSE 70; RESP 16; TEMP 98.1; O2SAT 95
--- NOTE | 2016-11-15 16:24 | HHI.NPPN ---
Subjective History of Present Illness ESRD doing better s/p PermCath AVF Rt forearm Additional Remarks Feels well, no acute complaints Objective Data Data 11/14/16 11/15/16 19:00 07:00 Intake Total 720 ml 1450 ml Output Total 2000 ml Balance -1280 ml 1450 ml Intake Oral 720 ml 1450 ml Hemodialysis 2000 ml # Voids 1 6 # Bowel Movements 1 0 Vital Signs Date Time Temp Pulse Resp B/P Pulse Ox O2 Delivery O2 Flow Rate FiO2 11/15/16 11:33 96.9 67 16 109/57 93 11/15/16 07:52 97.1 63 16 147/70 96 11/15/16 00:25 98.1 65 18 136/68 92 11/14/16 20:00 96.7 82 18 139/73 97 -: 11/12/16 1845 11/13/16 0454 Physical Exam General Appearance: Well Developed, Well Nourished Neck Neck Exam: Neck Supple Pulmonary Resp Exam: Clear Bilaterally, Breath Sounds Equal Cardiology CV Exam: Regular, Normal Sinus Rhythm Gastrointestinal/Abdomen GI Exam: Soft, Non-Tender, Bowel Sounds Present Musculoskeletal MS Exam: Joints Intact Extremeties Extremities Exam: No Edema, Moderate Edema Neurologic Neuro Exam: Alert, Awake Psychiatric Psych Exam: Appropriate Responses Assessment/Plan Problem List: (1) ESRD (end stage renal disease) Plan: Tolerated HD Thursday, plan for next HD Thursday ESRD now PermCath placed Apparently Dr. Thakkar has made arrangements for dialysis at [facility] in [place] - if this is setup on Thursday, may be considered for d/c Thursday. Plan to stay in for 2 weeks, then to return to [place] for continued hemodialysis at clinic near his home. Patient to also continue transplant evaluation. Right brachiocephalic AV fistula created 11/07/2016 in [place] - excellent thrill and no physical exam findings of stenosis. AVF will take another 8-12 weeks to fully mature, continue catheter use for now. Patient speaks Mongolian - discussed plan in Mongolian with patient. (2) Edema Plan: continue supportive care (3) Anemia Plan: Stable - on Epogen (4) Hypertension Plan: BP stable, continue meds. Problem Qualifiers (1) Edema: Qualified Code: R60.9 - Edema, unspecified type (2) Anemia: Qualified Code: D64.89 - Anemia due to other cause, not classified (3) Hypertension: Qualified Code: I10 - Essential hypertension Carlos Betts MD Nov 15, 2016 16:24
[2016-11-15 20:14] VITALS: BP 127/66; PULSE 77; RESP 17; TEMP 96.6; O2SAT 98
[2016-11-15] MEDS: diphenhydrAMINE HCL 25 MG CAP PO PRN (21:37)
[2016-11-16 00:21] VITALS: BP 121/63; PULSE 64; RESP 18; TEMP 96.5; O2SAT 94
[2016-11-16 07:37] VITALS: BP 129/67; PULSE 61; RESP 17; TEMP 96.7; O2SAT 96
--- NOTE | 2016-11-16 08:58 | HHI.PR ---
Subjective Remarks had a good night, no shortness of breath no pain, up and ambulating Objective Vitals Vital Signs Date Time Temp Pulse Resp B/P Pulse Ox O2 Delivery O2 Flow Rate FiO2 11/16/16 00:21 96.5 64 18 121/63 94 11/15/16 20:14 96.6 77 17 127/66 98 11/15/16 16:00 98.1 70 16 127/67 95 11/15/16 11:33 96.9 67 16 109/57 93 I/O 11/15/16 11/15/16 11/15/16 11/16/16 11/16/16 11/16/16 07:00 15:00 23:00 07:00 15:00 23:00 Intake Total 800 ml 720 ml 720 ml 240 ml Balance 800 ml 720 ml 720 ml 240 ml Intake Oral 800 ml 720 ml 720 ml 240 ml IV Total 0 ml # Voids 3 2 5 1 # Bowel Movements 0 1 0 Result Diagram: 11/12/16 1845 11/13/16 0454 Imaging Last Impressions Myocardial Perfusion Scan Nuc Med 11/13/16 0000 Signed Impressions: Service Date/Time: November 14:15 - CONCLUSION: 1. No ischemic segment identified. Mild global hypokinesis. RISK CATEGORY: Intermediate (1-3%% Annual Mortality Rate) Margarito Jin MD Catheter Placement X-Ray 11/13/16 0000 Signed Impressions: Service Date/Time: November 11:44 - CONCLUSION: Uncomplicated PermaCath placement as above. Margarito Jin MD Chest X-Ray 11/10/16 0000 Signed Impressions: Service Date/Time: Thursday, November 10, 2016 13:39 - CONCLUSION: No acute disease. Lenny Faye MD Objective Remarks awake and alert, oriented x 3 Right chest wall- VAS cath in place anicteric lungs no rales or wheezes regular rhythm abdomen soft, nontender extremities RUE- AVF + thrill. LE no edema neuro exam- unremarkable Procedures hemodialysis- A/P Assessment and Plan 66-year-old male presenting with increasing generalized weakness, worsening renal in function End-stage renal disease secondary to IgA nephropathy, hypertensive nephropathy on hemodialysis- Dr. Thakkar. ff eventual plan for transplant- on list History of hypertension- better readings Will continue on Coreg 12.5 mg am, 25 mg hs CCB - Nifedipine 20 mg po tid- home regimen readings improve with HD seen by Dr. Pederson - cleared- Lexiscan negative Elevated BNP secondary to end-stage renal disease.- not in clincial failure Chest x-ray unremarkable. edema resolved Diabetes type 2 hemoglobin A1c of 6.5 2 months ago. Blood sugar readings improved with worsening renal functions Anemia, mild of chronic renal disease on Epogen Elevated PSA-history -- bno clinical evidence of prostate cancer S/P evaluation by Urology-- cleared PT ff for deconditioning DC planning- once OP HD arranged- Santiago Mcintosh MD Nov 16, 2016 08:57
[2016-11-16] MEDS: CARVEDILOL 12.5 MG TAB PO SCH (09:00)
[2016-11-16 11:46] VITALS: BP 122/63; PULSE 62; RESP 17; TEMP 96.8; O2SAT 96
[2016-11-16] MEDS: NIFEdipine 20 MG CAP PO SCH ×3 (13:00→18:29)
--- NOTE | 2016-11-16 13:55 | HHI.NPPN ---
Subjective History of Present Illness ESRD doing better s/p PermCath AVF Rt forearm Additional Remarks Feels well, no acute complaints Objective Data Data 11/15/16 11/16/16 19:00 07:00 Intake Total 720 ml 960 ml Balance 720 ml 960 ml Intake Oral 720 ml 960 ml IV Total 0 ml # Voids 2 6 # Bowel Movements 1 Vital Signs Date Time Temp Pulse Resp B/P Pulse Ox O2 Delivery O2 Flow Rate FiO2 11/16/16 11:46 96.8 62 17 122/63 96 11/16/16 07:37 96.7 61 17 129/67 96 11/16/16 00:21 96.5 64 18 121/63 94 11/15/16 20:14 96.6 77 17 127/66 98 11/15/16 16:00 98.1 70 16 127/67 95 -: 11/12/16 1845 11/13/16 0454 Physical Exam General Appearance: Well Developed, Well Nourished Neck Neck Exam: Neck Supple Pulmonary Resp Exam: Clear Bilaterally, Breath Sounds Equal Cardiology CV Exam: Regular, Normal Sinus Rhythm Gastrointestinal/Abdomen GI Exam: Soft, Non-Tender, Bowel Sounds Present Musculoskeletal MS Exam: Joints Intact Extremeties Extremities Exam: No Edema, Moderate Edema Neurologic Neuro Exam: Alert, Awake Psychiatric Psych Exam: Appropriate Responses Assessment/Plan Problem List: (1) ESRD (end stage renal disease) Plan: Tolerated HD Thursday, plan for next HD Thursday ESRD now - Biopsy proven IgA Nephropathy ([place]) PermCath placed Apparently Dr. Thakkar has made arrangements for dialysis at [facility] in [place] - if this is setup on Thursday, may be considered for d/c Thursday. Plan to stay in for 2 weeks, then to return to [place] for continued hemodialysis at clinic near his home. Patient to also continue transplant evaluation. Right brachiocephalic AV fistula created 11/07/2016 in [place] - excellent thrill and no physical exam findings of stenosis. AVF will take another 8-12 weeks to fully mature, continue catheter use for now. Patient speaks Croatian - discussed plan in Croatian with patient and his son ( Hospitalist on staff) (2) Edema Plan: continue supportive care (3) Anemia Plan: Stable - on Epogen (4) Hypertension Plan: BP stable, continue meds. Problem Qualifiers (1) Edema: Qualified Code: R60.9 - Edema, unspecified type (2) Anemia: Qualified Code: D64.89 - Anemia due to other cause, not classified (3) Hypertension: Qualified Code: I10 - Essential hypertension Carlos Betts MD Nov 16, 2016 13:55
[2016-11-16 17:05] VITALS: BP 115/63; PULSE 72; RESP 17; TEMP 96.8; O2SAT 97
[2016-11-16 20:11] VITALS: BP 115/65; PULSE 71; RESP 19; TEMP 97; O2SAT 96
[2016-11-17 00:20] VITALS: BP 128/62; PULSE 62; RESP 18; TEMP 97.3; O2SAT 96
[2016-11-17 04:19] VITALS: BP 135/74; PULSE 65; RESP 18; TEMP 97.5; O2SAT 95
[2016-11-17 04:40] LABS: AUTOMATED NEUTROPHIL # 4.8 TH/MM3 (1.8-7.7); BASOPHIL % 0.4 % (0.0-2.0); EOSINOPHIL # 0.4 TH/MM3 (0-0.4); EOSINOPHIL % 5.1 % (0.0-4.0); HEMATOCRIT 28.8 % (39.0-51.0); HEMO FLAGS DIFF FINAL; LYMPH % 20.3 % (9.0-44.0); LYMPHOCYTE # 1.5 TH/MM3 (1.0-4.8); MEAN CORPUSCULAR HEMOGLOBIN 31.2 PG (27.0-34.0); MEAN CORPUSCULAR HGB CONC 34.6 % (32.0-36.0); MONO % 10.1 % (0.0-8.0); NEUT % 64.1 % (16.0-70.0); PLATELET COUNT 241 TH/MM3 (150-450); RED CELL DISTRIBUTION WIDTH 13.9 % (11.6-17.2); WHITE BLOOD COUNT 7.5 TH/MM3 (4.0-11.0)
[2016-11-17 04:58] LABS: BICARBONATE 25.1 MEQ/L (21.0-32.0); POTASSIUM 4.3 MEQ/L (3.5-5.1)
[2016-11-17 07:34] VITALS: BP 161/77; PULSE 65; RESP 16; TEMP 96.2; O2SAT 97
[2016-11-17] MEDS: CARVEDILOL 12.5 MG TAB PO SCH (09:00)
[2016-11-17] MEDS: NIFEdipine 20 MG CAP PO SCH ×2 (09:00→12:54)
--- NOTE | 2016-11-17 09:35 | HHI.PR ---
Subjective Remarks in dialysis, no complains Objective Vitals Vital Signs Date Time Temp Pulse Resp B/P Pulse Ox O2 Delivery O2 Flow Rate FiO2 11/17/16 04:19 97.5 65 18 135/74 95 11/17/16 00:20 97.3 62 18 128/62 96 11/16/16 20:11 97.0 71 19 115/65 96 11/16/16 17:05 96.8 72 17 115/63 97 11/16/16 11:46 96.8 62 17 122/63 96 I/O 11/16/16 11/16/16 11/16/16 11/17/16 11/17/16 11/17/16 07:00 15:00 23:00 07:00 15:00 23:00 Intake Total 240 ml 960 ml 720 ml 360 ml Balance 240 ml 960 ml 720 ml 360 ml Intake Oral 240 ml 960 ml 720 ml 360 ml IV Total 0 ml # Voids 1 3 5 2 # Bowel Movements 0 1 2 0 Result Diagram: 11/17/169 11/17/169 Imaging Last Impressions Myocardial Perfusion Scan Nuc Med 11/13/16 0000 Signed Impressions: Service Date/Time: November 14:15 - CONCLUSION: 1. No ischemic segment identified. Mild global hypokinesis. RISK CATEGORY: Intermediate (1-3%% Annual Mortality Rate) Margarito Jin MD Catheter Placement X-Ray 11/13/16 0000 Signed Impressions: Service Date/Time: November 11:44 - CONCLUSION: Uncomplicated PermaCath placement as above. Margarito Jin MD Chest X-Ray 11/10/16 0000 Signed Impressions: Service Date/Time: Thursday, November 10, 2016 13:39 - CONCLUSION: No acute disease. Lenny Faye MD Objective Remarks awake and alert, oriented x 3 Right chest wall- VAS cath in place anicteric lungs no rales or wheezes regular rhythm abdomen soft, nontender extremities RUE- AVF + thrill. LE no edema neuro exam- unremarkable Procedures hemodialysis- A/P Assessment and Plan 66-year-old male presenting with increasing generalized weakness, worsening renal in function End-stage renal disease secondary to IgA nephropathy, hypertensive nephropathy on hemodialysis- Dr. Thakkar. ff eventual plan for transplant- on list Vascular surgery consulted to evaluate AVF History of hypertension- better readings Will continue on Coreg 12.5 mg am, 25 mg hs CCB changed to Nifedipine 20 mg po tid- home regimen readings should improve with HD seen by Dr. Pederson - devyn- Nicole negative Elevated BNP secondary to end-stage renal disease. Chest x-ray unremarkable. edema resolved Diabetes type 2 hemoglobin A1c of 6.5 2 months ago. Blood sugar readings improved with worsening renal functions Anemia, mild of chronic renal disease on Epogen Elevated PSA history- no evidence of clinical prostate cancer S/P evaluation by Urology PT ff for deconditioning DC planning- once OP HD arranged Santiago Wolfe MD Nov 17, 2016 09:34
[2016-11-17] MEDS: HEPARIN SODIUM - IV 10,000 UNITS/10 ML VIAL PRN (11:03)
[2016-11-17] MEDS: GENTAMICIN SULFATE (DIALYSIS USE ONLY) 20 MG/2 ML VIAL IV PRN (11:03)
[2016-11-17] MEDS: EPOETIN ALFA 10,000 UNITS/ML VIAL IV PRN (11:03)
[2016-11-17 12:40] VITALS: BP 151/70; PULSE 69; RESP 18; TEMP 97.1; O2SAT 98
[2016-11-17] MEDS ORDERED: OXYC1TAB63 PO (15:00)
--- NOTE | 2016-11-17 15:06 | HHI.DS ---
Discharge Summary Admission Date Nov 10, 2016 at 14:55 Discharge Date: Nov 17, 2016 Admitting Diagnosis Acute on chronic kidney failure (1) ESRD (end stage renal disease) ICD Code: N18.6 Diagnosis: Principal Procedures hemodialysis- Brief History - From Admission And is a very pleasant 66-year-old male with known history of hypertension, history of chronic kidney insufficiency secondary to IgA nephropathy diagnosed by biopsy. Plan was to eventually get him on hemodialysis. An AV fistula was placed on the right arm November 04 in anticipation of hemodialysis. Patient arrived in yesterday a few days ago from [place] to visit family. He was set up to be evaluated by our transplant team on November 12. For the past 2 weeks now had been having generalized weakness increasing fatigability edema of both lower extremities, Persistence of above signs and symptoms prompted consult to ER where on evaluation had an acute increase of his creatinine to 11.4. Patient states that he still makes urine. Patient denies any fever or chills nausea or vomiting diarrhea. CBC/BMP: 11/17/16 0319 11/17/16 0319 Significant Findings Laboratory Tests Test 11/17/16 03:19 Red Blood Count 3.20 MIL/MM3 (4.50-5.90) Hemoglobin 10.0 GM/DL (13.0-17.0) Hematocrit 28.8 % (39.0-51.0) Mean Platelet Volume 6.5 FL (7.0-11.0) Monocytes (%) (Auto) 10.1 % (0.0-8.0) Eosinophils (%) (Auto) 5.1 % (0.0-4.0) Blood Urea Nitrogen 64 MG/DL (7-18) Creatinine 9.75 MG/DL (0.60-1.30) Estimat Glomerular Filtration 5 ML/MIN (>89) Rate Calcium Level 8.4 MG/DL (8.5-10.1) Imaging Last Impressions Myocardial Perfusion Scan Nuc Med 11/13/16 0000 Signed Impressions: Service Date/Time: November 14:15 - CONCLUSION: 1. No ischemic segment identified. Mild global hypokinesis. RISK CATEGORY: Intermediate (1-3%% Annual Mortality Rate) Margarito Jin MD Catheter Placement X-Ray 11/13/16 0000 Signed Impressions: Service Date/Time: November 11:44 - CONCLUSION: Uncomplicated PermaCath placement as above. Margarito Jin MD Chest X-Ray 11/10/16 0000 Signed Impressions: Service Date/Time: Thursday, November 10, 2016 13:39 - CONCLUSION: No acute disease. Lenny Faye MD PE at Discharge awake and alert, oriented x 3 Right chest wall- VAS cath in place anicteric lungs no rales or wheezes regular rhythm abdomen soft, nontender extremities RUE- AVF + thrill. LE no edema neuro exam- unremarkable Pt update on day of discharge no pain, no distress, no shortness of breath Hospital Course 66-year-old male presenting with increasing generalized weakness, worsening renal in function End-stage renal disease secondary to IgA nephropathy, hypertensive nephropathy on hemodialysis- Dr. Thakkar. ff eventual plan for transplant- on list Vascular surgery consulted to evaluate AVF History of hypertension- better readings Will continue on Coreg 12.5 mg am, 25 mg hs CCB changed to Nifedipine 20 mg po tid- home regimen readings should improve with HD seen by Dr. Pederson - devyn- Nicole negative Elevated BNP secondary to end-stage renal disease. Chest x-ray unremarkable. edema resolved Diabetes type 2 hemoglobin A1c of 6.5 2 months ago. Blood sugar readings improved with worsening renal functions Anemia, mild of chronic renal disease on Epogen Elevated PSA history- no evidence of clinical prostate cancer S/P evaluation by Urology PT ff for deconditioning- patient feels stronger, up and ambulating DC planning- once OP HD arranged Pt Condition on Discharge: Stable Discharge Disposition: Discharge Home Discharge Time: <= 30 minutes Discharge Instructions DIET: Follow Instructions for: Renal Failure Diet Speech Therapy-Diet Recommends: Regular Activities you can perform: Weight Bearing as Alen Follow up Referrals: Nephrology - 1 Week with [facility] - 3-5 Days with You Ames MD New Medications: Oxycodone-Acetaminophen (Oxycodone-Acetaminophen) 5-325 mg Tab 1 TAB PO Q8HR PRN PAIN SCALE 4 TO 10 #14 Ref 0 TAB Continued Medications: Carvedilol (Carvedilol) 12.5 Mg Tab 12.5 MG PO DAILY #1 Ref 0 TAB Carvedilol (Carvedilol) 25 Mg Tab 25 MG PO HS #1 Ref 0 TAB Nifedipine (Nifedipine) 20 Mg Cap 20 MG PO TID Chest Pain #1 Ref 0 CAP Santiago Wolfe MD Nov 17, 2016 15:06
== END 2016-11-17 16:37 | disposition home or self-care (01) | DRG 683 ==
LOC: NEPE 12:30 → NEDA 14:55 → N06A 17:59
PROVIDERS: ADMIT Internal Medicine; ATTEND Internal Medicine
PROC: 5A1D60Z (ICD-10-PCS; principal; 2016-11-10)
PROC: 05HM33Z Insertion of Infusion Device into Right Internal Jugular Vein, Percutaneous Approach (ICD-10-PCS; 2016-11-11)
PROC: B543ZZA Ultrasonography of Right Jugular Veins, Guidance (ICD-10-PCS; 2016-11-11)
PROC: 05HM33Z Insertion of Infusion Device into Right Internal Jugular Vein, Percutaneous Approach (ICD-10-PCS; 2016-11-13)
PROC: B513ZZA Fluoroscopy of Right Jugular Veins, Guidance (ICD-10-PCS; 2016-11-13)
DX: N17.9 Acute kidney failure, unspecified (principal); I12.0 Hypertensive chronic kidney disease with stage 5 chronic kidney disease or end stage renal disease; N18.9 Chronic kidney disease, unspecified; D63.1 Anemia in chronic kidney disease; E11.9 Type 2 diabetes mellitus without complications; N02.8 Recurrent and persistent hematuria with other morphologic changes; Z83.3 Family history of diabetes mellitus; R97.20 Elevated prostate specific antigen [PSA]; Z80.42 Family history of malignant neoplasm of prostate; Z87.891 Personal history of nicotine dependence
CPT/HCPCS: 36556; 36558; 71010; 76937; 77001; 78452; 80048; 80053; 80074; 83880; 84100; 84484; 85025; 85610; 90935; 93005; 93017; 93306; 96374; 96375; 99152; 99153; A9502; C1750; C1752; C1769; J0690; J1580; J1642; J1644; J2250; J2405; J2785; J3010; J3370; J7030; J7050; Q4081

== ENCOUNTER 2016-12-29 10:57 | Emergency (ER) | payer BC ==
[~2016-12-29 10:57] MED LIST: CARV12.52 PO; CARV25TA PO; CLOB-23 TOPICAL; CLOB5AER TOPICAL; NIFE20 PO; OXYC1TAB63 PO
[2016-12-29 10:58] VITALS: BP 125/62; PULSE 68; RESP 20; TEMP 97.9; O2SAT 98
[2016-12-29] MEDS ORDERED: LEVO250T3 PO (11:32)
--- NOTE | 2016-12-29 11:33 | PD ---
HPI Chief Complaint: Fever Time Seen by Provider: 11:33 Travel History International Travel<30 days: Yes Contact w/Intl Traveler<30days: Yes Name of Country Traveled to: [place] Traveled to known affect area: No History of Present Illness HPI 66-year-old Lithuanian speaking male presents to the emergency department for evaluation of fever. Patient is the father of Dr. Wooten, [facility] physician , who provides translation. The patient just returned from [place] after spending 20 days in [place]. He returned yesterday. He has history of end- stage renal disease and is on hemodialysis. He was switched to Thursday, , Thursday while in [place]. Patient had fever of 101.[address] . [address] to Dr[address] Wooten, the patient denies any other symptoms. No cough, congestion, chest pain, shortness breath, abdominal pain, vomiting, diarrhea. His fruit preserver is Dr. Thakkar. He has been receiving Rocephin 1 g during dialysis treatment in [place]. He is on Levaquin 250 mg by mouth twice a day. Patient is afebrile in the emergency department. He did get a Vas-Cath to the right chest approximately one month ago here at [facility] before traveling to [place]. This was due to the fistula not working correctly. PFSH Past Medical History Cancer: No Cardiovascular Problems: Yes High Cholesterol: Yes (currently diet controlled) Diabetes: Yes (DIET CONTROLLED) Patient Takes Glucophage: No Dialysis: Yes Genitourinary: Yes (renal htn) Hypertension: Yes Immune Disorder: No Implanted Vascular Access Dvce: No Kidney Stones: No Musculoskeletal: No Neurologic: Yes Psychiatric: No Reproductive: No Respiratory: No Renal Failure: Yes (HEMODIALYSIS 3X A WEEK) Past Surgical History Cardiac Surgery: No Ear Surgery: No Endocrine Surgery: No Eye Surgery: Yes (LASIK) Genitourinary Surgery: No Gynecologic Surgery: No Oral Surgery: No Thoracic Surgery: No Other Surgery: Yes (UMBILICAL HERNIA REPAIR) Social History Alcohol Use: No Tobacco Use: No Substance Use: No Allergies-Medications (Allergen,Severity, Reaction): Coded Allergies: No Known Allergies (Unverified , 11/10/16) Reported Meds & Prescriptions Reported Meds & Active Scripts Active Oxycodone-Acetaminophen 5-325 mg Tab 1 Tab PO Q8HR PRN Reported Levofloxacin 250 Mg Tab 250 Mg PO Q12HR Cormax Scalp Topical (Clobetasol Propionate) 0.05% Soln 1 Applic TOPICAL DAILY Nifedipine 20 Mg Cap 20 Mg PO TID Carvedilol 12.5 Mg Tab 12.5 Mg PO DAILY Review of Systems Except as stated in HPI: all other systems reviewed are Neg Physical Exam Narrative GENERAL: Well-developed well-nourished male patient, ambulatory. Afebrile. SKIN: Warm and dry. Right chest vas cath noted. Fistula to right upper arm with + bruit and + thrill. HEAD: Normocephalic. Atraumatic. EYES: No scleral icterus. No injection or drainage. NECK: Supple, trachea midline. No JVD or lymphadenopathy. CARDIOVASCULAR: Regular rate and rhythm without murmurs, gallops, or rubs. RESPIRATORY: Breath sounds equal bilaterally. No accessory muscle use. Lungs sounds are clear to auscultation. GASTROINTESTINAL: Abdomen soft, non-tender, nondistended. MUSCULOSKELETAL: No cyanosis, or edema. BACK: Nontender without obvious deformity. No CVA tenderness. Data Data Last Documented VS Vital Signs Date Time Temp Pulse Resp B/P Pulse Ox O2 Delivery O2 Flow Rate FiO2 12/29/16 11:34 97 Room Air 12/29/16 11:24 69 18 12/29/16 10:58 97.9 125/62 Orders Complete Blood Count With Diff (12/29/16 11:31) Comprehensive Metabolic Panel (12/29/16 11:31) Prothrombin Time / Inr (Pt) (12/29/16 11:31) Act Partial Throm Time (Ptt) (12/29/16 11:31) Lactic Acid Sepsis Protocol (12/29/16 11:31) Magnesium (Mg) (12/29/16 11:31) Urinalysis - C+S If Indicated (12/29/16 11:31) Influenzae A/B Antigen (12/29/16 11:31) Blood Culture (12/29/16 11:31) Chest, Single Ap (12/29/16 11:31) Blood Glucose (12/29/16 11:31) Ecg Monitoring (12/29/16 11:31) Iv Access Insert/Monitor (12/29/16 11:31) Oximetry (12/29/16 11:31) Oxygen Administration (12/29/16 11:31) Malaria (12/29/16 11:38) Labs Laboratory Tests Test 12/29/16 12/29/16 11:35 11:58 White Blood Count 8.8 TH/MM3 Red Blood Count 3.40 MIL/MM3 Hemoglobin 10.4 GM/DL Hematocrit 29.9 % Mean Corpuscular Volume 87.8 FL Mean Corpuscular Hemoglobin 30.6 PG Mean Corpuscular Hemoglobin 34.9 % Concent Red Cell Distribution Width 13.9 % Platelet Count 307 TH/MM3 Mean Platelet Volume 6.8 FL Neutrophils (%) (Auto) 69.5 % Lymphocytes (%) (Auto) 20.5 % Monocytes (%) (Auto) 6.2 % Eosinophils (%) (Auto) 3.0 % Basophils (%) (Auto) 0.8 % Neutrophils # (Auto) 6.1 TH/MM3 Lymphocytes # (Auto) 1.8 TH/MM3 Monocytes # (Auto) 0.5 TH/MM3 Eosinophils # (Auto) 0.3 TH/MM3 Basophils # (Auto) 0.1 TH/MM3 CBC Comment AUTO DIFF Differential Total Cells 100 Counted Neutrophils % (Manual) 59 % Band Neutrophils % 2 % Lymphocytes % 20 % Monocytes % 11 % Eosinophils % 2 % Neutrophils # (Manual) 5.9 TH/MM3 Metamyelocytes 3 % Myelocytes 3 % Differential Comment FINAL DIFF MANUAL Platelet Estimate NORMAL Platelet Morphology Comment NORMAL Prothrombin Time 11.2 SEC Prothromb Time International 1.0 RATIO Ratio Activated Partial 26.2 SEC Thromboplast Time Sodium Level 142 MEQ/L Potassium Level 4.9 MEQ/L Chloride Level 104 MEQ/L Carbon Dioxide Level 26.9 MEQ/L Anion Gap 11 MEQ/L Blood Urea Nitrogen 46 MG/DL Creatinine 9.49 MG/DL Estimat Glomerular Filtration 6 ML/MIN Rate Random Glucose 110 MG/DL Lactic Acid Level 0.8 mmol/L Calcium Level 9.3 MG/DL Magnesium Level 2.3 MG/DL Total Bilirubin 0.3 MG/DL Aspartate Amino Transf 10 U/L (AST/SGOT) Alanine Aminotransferase 15 U/L (ALT/SGPT) Alkaline Phosphatase 62 U/L Total Protein 7.1 GM/DL Albumin 3.1 GM/DL Urine Color YELLOW Urine Turbidity CLEAR Urine pH 8.0 Urine Specific [place] 1.009 Urine Protein 100 mg/dL Urine Glucose (UA) NEG mg/dL Urine Ketones NEG mg/dL Urine Occult Blood TRACE Urine Nitrite NEG Urine Bilirubin NEG Urine Urobilinogen LESS THAN 2.0 MG/DL Urine Leukocyte Esterase NEG Urine RBC 5 /hpf Urine WBC 2 /hpf Microscopic Urinalysis Comment CATH-CULT NOT IND MDM Medical Decision Making Medical Screen Exam Complete: Yes Emergency Medical Condition: Yes Medical Record Reviewed: Yes Interpretation(s) Last Impressions Chest X-Ray 12/29/16 1131 Signed Impressions: Service Date/Time: Thursday, December 29, 2016 11:36 - CONCLUSION: 1. Stable, linear scarring in the right lung base. Lungs are otherwise clear. 2. Borderline, well compensated heart.. Brando Chavez MD Differential Diagnosis Viral syndrome versus UTI versus pneumonia versus malaria versus sepsis versus ESRD Narrative Course 66-year-old male presents to the emergency department for evaluation of fever for 2 days, just returning from [place] yesterday and is on hemodialysis for ESRD. CBC, CMP, PTT, PTT/INR, lactic acid, magnesium, UA, influenza, malaria, blood cultures 2, chest x-ray are ordered and pending. CBC shows normal WBC of 8.8, hemoglobin 10.4, crit 29.9. CMP shows elevated B and a creatinine of 46/9.49. Lactic acid is 0.8. Magnesium .is 2.3. Coags are unremarkable. UA shows trace occult blood, no evidence of acute infection. Influenza is negative. Chest x-ray shows stable, linear scarring in the right lung base. Lungs are otherwise clear; borderline, well compensated heart.. Patient appears well on exam. Laboratory and imagining findings are reassuring. I discussed the results with Dr. Wooten in the patient as well. The patient is stable to be discharged to complete his dialysis today as scheduled. The patient and Dr. Wooten are in agreement with this. They're to return for any acute worsening of symptoms. Diagnosis Primary Impression: Fever of undetermined origin Additional Impression: ESRD (end stage renal disease) Referrals: [facility] Patient Instructions: Fever in Adults (ED), General Instructions Additional Instructions: Dialysis today as already scheduled. Follow up with nephrology/primary care provider. Return to the emergency department for any acute, worsening of symptoms. Med/Other Pt SpecificInfo: No Change to Meds Disposition: 01 DISCHARGE HOME Condition: Stable Minal Glover Dec 29, 2016 11:33
[2016-12-29 11:34] VITALS: O2SAT 97
[2016-12-29 11:47] LABS: AUTOMATED NEUTROPHIL # 6.1 TH/MM3 (1.8-7.7); BASOPHIL # 0.1 TH/MM3 (0-0.2); BASOPHIL % 0.8 % (0.0-2.0); EOSINOPHIL # 0.3 TH/MM3 (0-0.4); HEMATOCRIT 29.9 % (39.0-51.0); LYMPH % 20.5 % (9.0-44.0); LYMPHOCYTE # 1.8 TH/MM3 (1.0-4.8); MEAN CELL VOLUME 87.8 FL (80.0-100.0); MEAN CORPUSCULAR HEMOGLOBIN 30.6 PG (27.0-34.0); MEAN CORPUSCULAR HGB CONC 34.9 % (32.0-36.0); MONO % 6.2 % (0.0-8.0); NEUT % 69.5 % (16.0-70.0); PLATELET COUNT 307 TH/MM3 (150-450); RED CELL DISTRIBUTION WIDTH 13.9 % (11.6-17.2); WHITE BLOOD COUNT 8.8 TH/MM3 (4.0-11.0)
[2016-12-29 11:49] LABS: HEMO FLAGS AUTO DIFF
[2016-12-29 12:04] LABS: APTT (PATIENT) 26.2 SEC (24.3-30.1); PROTHROMBIN TIME - PATIENT 11.2 SEC (9.8-11.6)
[2016-12-29 12:05] LABS: ALT (GPT) 15 U/L (12-78); ANION GAP 11 MEQ/L (5-15); AST (GOT) 10 U/L (15-37); BICARBONATE 26.9 MEQ/L (21.0-32.0); BLOOD UREA NITROGEN 46 MG/DL (7-18); CHLORIDE 104 MEQ/L (98-107); GLOMERULAR FILTRATION RATE 6 ML/MIN (>89); MAGNESIUM 2.3 MG/DL (1.5-2.5); POTASSIUM 4.9 MEQ/L (3.5-5.1); SODIUM (NA) 142 MEQ/L (136-145)
[2016-12-29 12:08] LABS: ALKALINE PHOSPHATASE 62 U/L (45-117); TOTAL BILIRUBIN ADULT 0.3 MG/DL (0.2-1.0)
[2016-12-29 12:14] LABS: BLOOD, URINE TRACE (NEG); GLUCOSE,URINE NEG (NEG); KETONE, URINE NEG (NEG); NITRITE,URINE NEG (NEG); URINE COLOR YELLOW (YELLW/STRAW)
[2016-12-29 12:15] LABS: COMMENT (UR) CATH-CULT NOT IND; CULTURE IF INDICATED CATH CULTURE NOT IND
--- NOTE | 2016-12-29 12:23 | RADRPT ---
EXAM DATE/TIME: 12/29/2016 11:36 [facility] COMPARISON: CHEST SINGLE AP, November 10, 2016, 13:39. INDICATIONS : Fever for the past few days. MEDICAL HISTORY : Hypertension. SURGICAL HISTORY : Vas-cath. ENCOUNTER: Initial ACUITY: 3 days PAIN SCORE: 0/10 LOCATION: Bilateral chest FINDINGS: A single view of the chest demonstrates some linear scarring in the right lung base. Lungs are otherw ise clear. No effusion. Heart size is borderline but well compensated. Right IJ dialysis type cathete r with the tip projecting over the central venous system. Degenerative spurring of the dorsal spine. Osseous structures are otherwise intact. CONCLUSION: 1. Stable, linear scarring in the right lung base. Lungs are otherwise clear. 2. Borderline, well compensated heart.. Brando Chavez MD on December 29, 2016 at 12:19 Board Certified Radiologist. This report was verified electronically.
[2016-12-29 12:26] LABS: BANDS 2 % (0-6); EOSINOPHILS 2 % (0-4); METAMYELOCYTES 3 % (0-1); MYELOCYTES 3 % (0-0); NEUTROPHIL # MANUAL DIFF 5.9 TH/MM3 (1.8-7.7); PLATELET ESTIMATE SMEAR NORMAL (NORMAL); PLATELET MORPHOLOGY NORMAL (NORMAL); POLYS (SEG NEUTROPHILS) 59 % (16-70); SCAN/DIFF FINAL DIFF MANUAL; WBC DIFF SAMPLE 100
== END 2016-12-29 14:14 | disposition home or self-care (01) ==
LOC: NEPA 10:57
DX: R50.9 Fever, unspecified (principal); N18.6 End stage renal disease; E11.22 Type 2 diabetes mellitus with diabetic chronic kidney disease; I12.0 Hypertensive chronic kidney disease with stage 5 chronic kidney disease or end stage renal disease; Z99.2 Dependence on renal dialysis
CPT/HCPCS: 71010; 80053; 81001; 83605; 83735; 85007; 85027; 85610; 85730; 87015; 87040; 87207; 87804; 99283